=== PATIENT | female | born 1940 | race Caucasian/White ===

== ENCOUNTER 2019-10-16 09:05 | Day surgery (SDC) | payer OTHER ==
--- NOTE | 2019-10-16 09:08 | EKG ---
Test Date: 2019-10-16 Test Time: 08:33:17 Anesthesia Tech: LONG MEASUREMENT RESULTS: Intervals: Rate: 68 [place]: 178 QRSD: 90 QT: 404 QTc: 429 [place]: P: 59 [place]: 178 QRS: -21 T: 17 INTERPRETIVE STATEMENTS: Sinus rhythm with premature atrial complexes Otherwise normal ECG Compared to ECG 03/12/2015 16:00:51 Atrial premature complex(es) now present Sinus arrhythmia no longer present First degree AV block no longer present Electronically Signed On 10-16-19 09:07:53 ELECTRONIC NEWS GATHERING EDITOR by Isauro Al
[2019-10-16 09:26] LABS: Absolute Lymphocytes (CBC) 1.8 K/uL (0.7-4.9); Basophils % 0.9 % (0-1.3); Hematocrit 30.4 % (36.0-45.0); Lymphocytes % 19.7 % (15.3-44.8); MPV 7.1 fL (7.6-11.3); RBC Red Blood Cell Count 3.32 M/uL (3.86-4.86)
[2019-10-16 09:36] LABS: Potassium 3.7 mmol/L (3.5-5.1)
--- NOTE | 2019-10-16 09:38 | RAD REPORT ---
EXAM DESCRIPTION: Magdalena Jimenez And Laurie (2 Views)10/16/2019 9:03 am CLINICAL HISTORY: Preop for removal of lesion from arm COMPARISON: 2014 FINDINGS: Old right rib fractures with chronic elevation of the right hemidiaphragm The lungs appear clear of acute infiltrate. The heart is borderline enlarged IMPRESSION: No acute abnormalities displayed
[2019-10-16] MEDS ORDERED: Ringers Lactate 1,000 ML IV ONE (09:48)
[2019-10-16] MEDS ORDERED: CEFAZOLIN/SWI 1gm 1 GM/10 ML SYR ONE (09:50)
[2019-10-16] MEDS ORDERED: FENTANYL CITR 100 MCG/2 ML ONE (10:16)
[2019-10-16] MEDS ORDERED: LIDOCAINE 2% MPF 5 ML VIAL ONE (10:16)
[2019-10-16] MEDS ORDERED: propofoL 200 MG/20 ML VIAL IV ONE (10:16)
[2019-10-16] MEDS ORDERED: ONDANSETRON 4 MG/2 ML VIAL ONE (10:31)
[2019-10-16] MEDS ORDERED: CODEINE 30MG/APAP 300MG TAB ONE (13:06)
[2019-10-16 14:24] VITALS: TEMP 97.6; O2SAT 95
[2019-10-16 14:37] VITALS: BP 106/55
--- NOTE | 2019-10-16 23:45 | DS ---
Date of Discharge: 10/16/2019 Patient will go to day surgery and home when home when stable. Disposition: Home. Condition: Stable. Discharge Instructions: Resume home medications and diet. Activity as tolerated. No heavy lifting. Remove outer dressing in 2 days. Shower. Keep dressing clean and dry, do not change dressing. Tyl enol No. 3 one tablet p.o. q.4 p.r.n. pain, Keflex 500 mg p.o. daily. I will follow the patient in [facility] halfway next week. /MODL Voice ID: [id number] Report ID: [id number]
--- NOTE | 2019-10-16 23:45 | OP ---
Date of Procedure: 10/16/2019 Surgeon: Reji Reed MD Metal Patternmaker Apprentice: ELIZABETH Mendosa. Preoperative Diagnosis: Left arm ulcerated mass. Postoperative Diagnosis: Left arm ulcerated mass, squamous cell carcinoma. Procedure: Wide excision of left arm 10 x 4 cm with layered closure. Length of closure 10 cm. Estimated Blood Loss: Minimal. Specimen: Left forearm mass. Findings: Squamous cell carcinoma. Margins free. Anesthesia: General. Complications: None. Patient tolerated the procedure in stable condition, taken to Recovery in good general condition. Description Of Procedure: Patient was brought to the OR and placed in supine position. General anes thesia was begun. Patient was prepped and draped in the usual sterile fashion. Marcaine 0.5% was in filtrated locally. 15-blade was used to make a 10 x 4 cm incision to excise this approximately 2.5 c m ulcerated mass with normal skin borders visibly that I could see. Subcutaneous tissue divided, ent robby mass excised, sent to Pathology. Frozen revealed squamous cell carcinoma, margins free. Wound i rrigated. Bleeding controlled with cautery. Flaps created. 3-0 chromic used to approximate subcuta neous tissue and 5-0 nylon interrupted used to close the skin. Sterile dressing was applied. Patient was awakened and taken to Recovery in good general condition. /MODL Voice ID: [id number] Report ID: [id number]
== END 2019-10-16 14:15 | disposition home or self-care (01) ==
LOC: OR 09:05
PROVIDERS: ATTEND Surgery
PROC: 0HBEXZZ Excision of Left Lower Arm Skin, External Approach (ICD-10-PCS; principal; 2019-10-16 10:15)
DX: C44.629 Squamous cell carcinoma of skin of left upper limb, including shoulder (principal); I10 Essential (primary) hypertension; G30.9 Alzheimer's disease, unspecified; F02.80 Dementia in other diseases classified elsewhere, unspecified severity, without behavioral disturbance, psychotic disturbance, mood disturbance, and anxiety; F32.9 Major depressive disorder, single episode, unspecified; R53.81 Other malaise; Z91.040 Latex allergy status
CPT/HCPCS: 93005; 85025; 80048; 36415; 88331; 88332; 88305; 71046; 11606; J2704; J3010; J0690; J7120; J2405

== ENCOUNTER 2020-02-13 10:28 | Emergency (ER) | payer OTHER ==
--- OUTSIDE RECORDS SUMMARY | 2020-02-13 11:37 | XMS REPORT | Continuity of Care Document ---
:1940 Author Organization [facility] t Address [address] [place] [place] [address] Care Team Providers Name Role Phone Ezekiel Arana MD Attending Clinician Problems This patient has no known problems. Allergies, Adverse Reactions, Alerts This patient has no known allergies or adverse reactions. Medications This patient has no known medications. Procedures This patient has no known procedures. Encounters Start End Encounter Admission Attending Care Care Encounter Source Date/Time Date/Time Type Type Clinicians Facility Department ID 2020-02-11 2020-02-12 Office SIN Arana [id number] 14:02:23 11:51:29 Visit Burt Falcon [facility] [id number] [facility] [id number] [facility] [id number] [facility] Results This patient has no known results.
[2020-02-13 11:58] LABS: Absolute Lymphocytes (CBC) 1.8 K/uL (0.7-4.9); Basophils % 0.2 % (0-1.3); Hematocrit 33.4 % (36.0-45.0); Lymphocytes % 18.4 % (15.3-44.8); MPV 7.2 fL (7.6-11.3); RBC Red Blood Cell Count 3.61 M/uL (3.86-4.86)
--- NOTE | 2020-02-13 12:05 | RAD REPORT ---
EXAM DESCRIPTION: Magdalena Single View02/13/2020 11:28 am CLINICAL HISTORY: Abdominal pain/renal failure COMPARISON: October 2019 FINDINGS: Air is present along the lateral aspect of the upper abdomen. That this may indicate pneum operitoneum or air within bowel. If clinically indicated further evaluation with CT could be obtained Chronic elevation right hemidiaphragm Lungs appear clear of acute infiltrate. Heart is normal size Examination was discussed with Dr. Nails in the Emergency Room at 11:59 a.m. on February 13, 2020
[2020-02-13 12:10] LABS: Albumin 3.7 g/dL (3.4-5.0); Bilirubin Direct 0.1 mg/dL (0-0.2); Bilirubin Total 0.5 mg/dL (0.2-1.0); Magnesium 3.1 mg/dL (1.8-2.4); Potassium 3.6 mmol/L (3.5-5.1); Protein, Total 8.2 g/dL (6.4-8.2); Troponin (Emerg Dept Use Only) 0.36 ng/mL (0.0-0.045)
--- NOTE | 2020-02-13 12:53 | RAD REPORT ---
EXAM DESCRIPTION: CT - Chest Abd Pelvis Wo Con - 02/13/2020 12:26 pm CLINICAL HISTORY: Abdominal pain;Chest pain COMPARISON: CTANGIO CHEST dated 08/19/2011; Chest Single View dated 02/13/2020; MRI SACRUM W O CONTRAST dated 11/25/2011; CT ABD PELVIS W CONTRAST dated 08/21/2011 TECHNIQUE: During dynamic enhancement using 100 milliliters nonionic IV contrast, axial 5 millimeter thick images of the chest, abdomen and pelvis were obtained. Biphasic technique was utilized through the abdomen. Oral contrast was administered. All CT scans are performed using dose optimization technique as appropriate and may include automated exposure control or mA/KV adjustment according to patient size. FINDINGS: Left lung field is clear. There is significant right hemidiaphragm elevation. No subpulmon ic abscess or abnormal fluid collection. Patchy posterior right gutter opacification is probably city carrier mati atelectasis rather than pneumonia. No pneumothorax or pleural effusion. No chest wall mass or ab normal axillary lymphadenopathy seen. Mediastinal and hilar regions show no mass or lymphadenopathy. No significant cardiac finding. Dense coronary artery calcifications are present. Bony degenerative changes are present. Multiple old right-sided rib fractures are present. No acute thoracic vertebral body finding. The liver, spleen and pancreas show no significant findings. Gallbladder and biliary tree are normal . Prominent extrarenal pelvis noted on the left. No left-sided obstructing calculus. Severe hydronephro sis of the right pelvis and calices noted. There is moderately severe dilatation of the right ureter down to the pelvic inlet. An obstructing calculus is not seen. Patient has numerous phleboliths. Ther e are numerous calcifications adjacent to the UPJ that are believed to be outside of the system. N o adrenal abnormalities. Urinary bladder is fully contracted by Moore catheter. Urinary bladder is d eviated to the anterior right pelvic floor. No gastric dilatation. No acute gastric finding. No dilated small bowel loops. Patient has very severe rectal dilation. There is a 14 cm AP x 10 cm TR dilated stool pack rectum. A very tortuous and redundant stool packed sigmoid colon is present dilated up to 7-8 cm. Right-side co ann shows only moderate degrees of retained stool volume. Acute appendicitis is not identifiable. No free air, free fluid or inflammatory stranding. No hernia, mass or bulky lymphadenopathy. Abdominal and pelvic bony degenerative changes are present. No pathologic process identifiable. IMPRESSION: Profound dilation of the stool pack rectum measuring 14 cm AP x 10 cm TR. A very tortuou s and redundant sigmoid colon is dilated up to 8 cm and filled with stool. No abscess, free air or other surgically emergent finding. Severe right-sided hydronephrosis of the pelvis and calices with moderately severe hydroureter down t o the pelvic inlet. No obstructing calculus is seen. The hydronephrosis may be secondary to extrinsic compression by the impacted and dilated rectum. Significant right hemidiaphragm elevation with patchy posterior gutter opacification that is probably chronic atelectasis rather than pneumonia. Pyelonephritis and other abdominal and pelvic process ease cannot be fully excluded in the absence of contrast. Nonacute findings are detailed in the body of the report. CT abdomen and pelvis imaging shows no significant or suspicious finding.
[2020-02-13] MEDS ORDERED: PIPER/TAZO/NS 3.375gm 3.375 GM/100 ML BAG ONE (13:14)
--- NOTE | 2020-02-13 14:23 | EDPHYS ---
Physician Documentation [facility] Name: Haylee Kumar Age: 79 yrs Sex: Female : 1940 Arrival Date: 02/13/2020 Time: 10:35 Bed 20 Private MD: ED Physician Prashanth Mtz HPI: 02/12 12:14 This 79 yrs old Female presents to ER via EMS with complaints of Abnormal Lab kdr Results. 12:14 The patient was sent from [place] for elevated Cr. It is unknown when this may have kdr occurred, From attached paper work that accompanied her, it appears that her Last Cr was on 10/16/19 and was 0.79 at that time. She has no focal c/o at this time. She is responsive to questions and follows commands. Her only c/o is generalized weakness. Onset: The symptoms/episode began/occurred at an unknown time. Severity of symptoms: At their worst the symptoms were very mild in the emergency department the symptoms are unchanged. It is unknown whether or not the patient has had similar symptoms in the past. It is unknown whether or not the patient has recently seen a physician. Historical: - Allergies: 10:39 No Known Allergies; ca1 - PMHx: 10:39 Hypertension; Depression; Anxiety; Arthritis; Alzheimers; Dementia; ca1 - PSHx: 10:39 Appendectomy; Hysterectomy; Tonsillectomy; ca1 - Immunization history:: Adult Immunizations up to date. - Social history:: Smoking status: Patient denies any tobacco usage or history of. ROS: 12:14 Constitutional: Negative for fever, chills, and weight loss, the patient is a poor kdr historian Eyes: Negative for injury, pain, redness, and discharge, Neck: Negative for injury, pain, and swelling, Cardiovascular: Negative for chest pain, palpitations, and edema, Respiratory: Negative for shortness of breath, cough, wheezing, and pleuritic chest pain. Exam: 11:57 ECG was reviewed by the Attending Physician. kdr 12:14 Constitutional: This is a well developed, well nourished patient who is awake, alert, kdr and in no acute distress. Head/Face: Normocephalic, atraumatic. Eyes: Pupils equal round and reactive to light, extra-ocular motions intact. Lids and lashes normal. Conjunctiva and sclera are non-icteric and not injected. Cornea within normal limits. Periorbital areas with no swelling, redness, or edema. Neck: Trachea midline, no thyromegaly or masses palpated, and no cervical lymphadenopathy. Supple, full range of motion without nuchal rigidity, or vertebral point tenderness. No Meningismus. Chest/axilla: Normal chest wall appearance and motion. Nontender with no deformity. No lesions are appreciated. Cardiovascular: Regular rate and rhythm with a normal S1 and S2. No gallops, murmurs, or rubs. Normal PMI, no JVD. No pulse deficits. Respiratory: Lungs have equal breath sounds bilaterally, clear to auscultation and percussion. No rales, rhonchi or wheezes noted. No increased work of breathing, no retractions or nasal flaring. Abdomen/GI: Soft, non-tender, with normal bowel sounds. No distension or tympany. No guarding or rebound. No evidence of tenderness throughout. Back: No spinal tenderness. No costovertebral tenderness. Full range of motion. Skin: Warm, dry with normal turgor. Normal color with no rashes, no lesions, and no evidence of cellulitis. MS/ Extremity: Pulses equal, no cyanosis. Neurovascular intact. Full, normal range of motion. Neuro: Awake and alert, GCS 15, oriented to person, place, time, and situation. Cranial nerves II-XII grossly intact. Motor strength 5/5 in all extremities. Sensory grossly intact. Cerebellar exam normal. Normal gait. Psych: Awake, alert, with orientation to person, place and time. Behavior, mood, and affect are within normal limits. Vital Signs: 10:35 BP 124 / 80; Pulse 68; Resp 18 S; Temp 97.1(TE); Pulse Ox 96% on R/A; Weight 54.43 kg ca1 (R); Height 5 ft. 0 in. (152.40 cm) (R); Pain 0/10; 12:00 BP 103 / 66; Pulse 66; Resp 14 S; Pulse Ox 96% on R/A; ca1 12:55 BP 103 / 66; Pulse 70; Resp 15 S; Pulse Ox 97% on R/A; ca1 13:54 BP 106 / 74; Pulse 76; Resp 15 S; Pulse Ox 96% on R/A; ca1 14:45 BP 102 / 70; Pulse 87; Resp 14 S; Pulse Ox 95% on R/A; ca1 15:48 BP 104 / 66; Pulse 91; Resp 14 S; Pulse Ox 96% on R/A; ca1 16:55 BP 109 / 76; Pulse 77; Resp 14 S; Pulse Ox 96% on R/A; ca1 10:35 Body Mass Index 23.44 (54.43 kg, 152.40 cm) ca1 MDM: 12:14 Data reviewed: vital signs, nurses notes, lab test result(s), radiologic studies. kdr Counseling: I had a detailed discussion with the patient and/or guardian regarding: the historical points, exam findings, and any diagnostic results supporting the discharge/admit diagnosis, lab results, radiology results. 14:22 Patient medically screened. kdr 02/12 11:10 Order name: Basic Metabolic Panel; Complete Time: 12:14 kdr 02/12 11:10 Order name: CBC with Diff; Complete Time: 12:01 kdr 02/12 11:10 Order name: LFT's; Complete Time: 12:14 kdr 02/12 11:10 Order name: Magnesium; Complete Time: 12:14 kdr 02/12 11:10 Order name: Troponin (emerg Dept Use Only); Complete Time: 12:14 kdr 02/12 13:00 Order name: Lactate; Complete Time: 13:53 kdr 02/12 11:10 Order name: XRAY Chest (1 view); Complete Time: 12:14 kdr 02/12 11:10 Order name: EKG; Complete Time: 11:11 kdr 02/12 11:10 Order name: Cardiac monitoring; Complete Time: 11:25 kdr 02/12 11:10 Order name: EKG - Nurse/Tech; Complete Time: 11:25 kdr 02/12 12:03 Order name: CT Chest Abdomen Pelvis W/O Contrast; Complete Time: 13:42 kdr 02/12 13:00 Order name: Procalcitonin; Complete Time: 14:02 kdr 02/12 11:10 Order name: IV Saline Lock; Complete Time: 11:32 kdr 02/12 11:10 Order name: Labs collected and sent; Complete Time: 11:32 kdr 02/12 11:10 Order name: O2 Per Protocol; Complete Time: 11:25 kdr 02/12 11:10 Order name: O2 Sat Monitoring; Complete Time: 11:25 kdr EC:57 Rate is 68 beats/min. Rhythm is regular, Normal Sinus Rhythm with No ectopy. Left axis kdr deviation noted. NC interval is normal. QRS interval is normal. QT interval is normal. No Q waves. Clinical impression: NSR w/ Non-specific ST/T Changes. Administered Medications: 13:18 Drug: Zosyn 3.375 grams Route: IVPB; Infused Over: 60 mins; Site: right antecubital; ca1 14:46 Follow up: Response: No adverse reaction; IV Status: Completed infusion ca1 14:46 Drug: Fleet Enema 133 ml Route: NC; ca1 15:15 Follow up: Response: No adverse reaction ca1 Disposition: 02/13/20 14:22 Transfer ordered to [facility]. Diagnosis is Bowel obstruction, hydronephrosis and hydro ureter. - Reason for transfer: Higher level of care. - Accepting physician is [facility]. - Condition is Fair. - Problem is new. - Symptoms are unchanged. Signatures: Dispatcher [employer] EDCO Prashanth Mtz MD MD kdr Abel Melendez, EDITING COMPUTER PUBLISHER-C EDITING COMPUTER PUBLISHER-Cla1 Jocelin Cooper RN RN ca1 Corrections: (The following items were deleted from the chart) 17:15 14:22 02/13/2020 14:22 Transfer ordered to [facility]. ca1 Diagnosis is Bowel obstruction, hydronephrosis and hydro ureter. Reason for transfer: Higher level of care. Accepting physician is [facility]. Condition is Fair. Problem is new. Symptoms are unchanged. kdr
--- NOTE | 2020-02-13 14:23 | ER ---
Nurse's Notes [facility] Name: Haylee Kumar Age: 79 yrs Sex: Female : 1940 Arrival Date: 02/13/2020 Time: 10:35 Bed 20 Private MD: Diagnosis: Bowel obstruction, hydronephrosis and hydro ureter Presentation: 02/12 10:35 Chief complaint: EMS states: Abnormal labs. Elevated creatinine compared to Oct 2019. ca1 [facility] reports pt is more lethargic than usual. No complaints at this time. PT is with [facility]. Coronavirus screen: Proceed with normal triage. Patient denies a cough. Patient denies shortness of breath or difficulty breathing. Patient denies measured and/or subjective temperature greater than 100.4F prior to today's visit. Patient denies travel on a cruise ship or to a country the [facility] currently lists as an affected area. Patient denies contact with known and/or suspected case of COVID-19. Ebola Screen: Patient negative for fever greater than or equal to 101.5 degrees Fahrenheit, and additional compatible Ebola Virus Disease symptoms Patient denies exposure to infectious person. Patient denies travel to an Ebola-affected area in the 21 days before illness onset. No symptoms or risks identified at this time. Initial Sepsis Screen: Does the patient meet any 2 criteria? No. Patient's initial sepsis screen is negative. Does the patient have a suspected source of infection? No. Patient's initial sepsis screen is negative. Risk Assessment: Do you want to hurt yourself or someone else? Patient reports no desire to harm self or others. Onset of symptoms was February 13, 2020. Care prior to arrival: None. Transition of care: patient was received from another setting of care (long-term care facility), Located Within [facility]. 10:35 Method Of Arrival: EMS: [facility] ca1 10:35 Acuity: ANETA 3 ca1 Historical: - Allergies: 10:39 No Known Allergies; ca1 - PMHx: 10:39 Hypertension; Depression; Anxiety; Arthritis; Alzheimers; Dementia; ca1 - PSHx: 10:39 Appendectomy; Hysterectomy; Tonsillectomy; ca1 - Immunization history:: Adult Immunizations up to date. - Social history:: Smoking status: Patient denies any tobacco usage or history of. Screenin:39 Abuse screen: Denies threats or abuse. Denies injuries from another. Nutritional ca1 screening: No deficits noted. Tuberculosis screening: No symptoms or risk factors identified. Fall Risk Secondary diagnosis (15 points) Alzheimer's, dementia, IV access (20 points). Ambulatory Aid- None/Bed Rest/Nurse Assist (0 pts). Gait- Normal/Bed Rest/Wheelchair (0 pts) Total Hou Fall Scale indicates High Risk Score (45 or more points). Fall prevention measures have been instituted. Side Rails Up X 2 Frequent Obs/Assessments Occuring As available patient and family educated on Fall Prevention Program and Strategies. Assessment: 10:40 General: Appears in no apparent distress. comfortable, Behavior is calm, cooperative, ca1 appropriate for age. Pain: Denies pain. Neuro: Level of Consciousness is obeys commands, lethargic, Oriented to person, place, situation. Cardiovascular: Heart tones S1 S2 present Capillary refill < 3 seconds Patient's skin is warm and dry. Rhythm is sinus rhythm. Respiratory: Airway is patent Respiratory effort is even, unlabored, Respiratory pattern is regular, symmetrical, Breath sounds are clear bilaterally. GI: Abdomen is flat, non-distended, Bowel sounds present X 4 quads. Abd is soft and non tender X 4 quads. : Moore in place. EENT: No signs and/or symptoms were reported regarding the EENT system. Derm: Skin is healthy with good turgor, Skin is pink, warm \T\ dry. Decubitus located on sacrum approximately 1.5 cm to 2.5 cm is stage II packing noted , dressing clean, dry and intact. Musculoskeletal: Circulation, motion, and sensation intact. Capillary refill < 3 seconds. 11:50 Reassessment: Patient appears in no apparent distress at this time. No changes from ca1 previously documented assessment. Patient is alert, oriented x 3, equal unlabored respirations, skin warm/dry/pink. 12:55 Reassessment: Patient appears in no apparent distress at this time. No changes from ca1 previously documented assessment. Patient is alert, oriented x 3, equal unlabored respirations, skin warm/dry/pink. 13:54 Reassessment: Patient appears in no apparent distress at this time. No changes from ca1 previously documented assessment. Patient and/or family updated on plan of care and expected duration. Pain level reassessed. 14:30 Reassessment: Attempted digital disimpaction done to evacuate feces. Evacuated some but ca1 unable to stimulate voluntary evacuation. Notified provider. VO fleet enema once. 14:48 Reassessment: Patient appears in no apparent distress at this time. No changes from ca1 previously documented assessment. Patient is alert, oriented x 3, equal unlabored respirations, skin warm/dry/pink. 15:48 Reassessment: Patient appears in no apparent distress at this time. Patient is alert, ca1 oriented x 3, equal unlabored respirations, skin warm/dry/pink. Called for report. Instructed to call back in 15 minutes. 16:22 Reassessment: Called Report TO LINDA Shelby at [facility]. ca1 16:37 Reassessment: Inés Rodriguez [phone]. Daughter. ca1 16:37 Reassessment: Patient appears in no apparent distress at this time. Patient and/or ca1 family updated on plan of care and expected duration. Pain level reassessed. Patient is alert, oriented x 3, equal unlabored respirations, skin warm/dry/pink. Vital Signs: 10:35 BP 124 / 80; Pulse 68; Resp 18 S; Temp 97.1(TE); Pulse Ox 96% on R/A; Weight 54.43 kg ca1 (R); Height 5 ft. 0 in. (152.40 cm) (R); Pain 0/10; 12:00 BP 103 / 66; Pulse 66; Resp 14 S; Pulse Ox 96% on R/A; ca1 12:55 BP 103 / 66; Pulse 70; Resp 15 S; Pulse Ox 97% on R/A; ca1 13:54 BP 106 / 74; Pulse 76; Resp 15 S; Pulse Ox 96% on R/A; ca1 14:45 BP 102 / 70; Pulse 87; Resp 14 S; Pulse Ox 95% on R/A; ca1 15:48 BP 104 / 66; Pulse 91; Resp 14 S; Pulse Ox 96% on R/A; ca1 16:55 BP 109 / 76; Pulse 77; Resp 14 S; Pulse Ox 96% on R/A; ca1 10:35 Body Mass Index 23.44 (54.43 kg, 152.40 cm) ca1 ED Course: 10:35 Patient arrived in ED. ca1 10:37 Triage completed. ca1 10:39 Jocelin Cooper RN is Primary Nurse. ca1 10:39 Arm band placed on right wrist. ca1 10:39 Patient has correct armband on for positive identification. Placed in gown. Bed in low ca1 position. Call light in reach. Side rails up X2. monitoring coordinator on. Pulse ox on. NIBP on. Warm blanket given. 10:42 Prashanth Mtz MD is Attending Physician. kdr 11:29 XRAY Chest (1 view) In Process Unspecified. EDMS 11:32 No provider procedures requiring assistance completed. Initial lab(s) drawn, by me, ca1 sent to lab. Inserted saline lock: 22 gauge in right antecubital area, using aseptic technique. Blood collected. 12:27 CT Chest Abdomen Pelvis W/O Contrast In Process Unspecified. EDMS 13:14 Lactate Sent. ca1 13:14 Procalcitonin Sent. ca1 14:22 Transfer initiated with Ale Tyler RN [facility] Transfer center. em1 15:17 Dr. Camila Mac speaks with Dr. Mtz and gives acceptance. em1 15:26 Ale Tyler RN gives administrative approval. Pt going to [facility] room em1 [id number]. 17:11 Patient transferred, IV remains in place. ca1 Administered Medications: 13:18 Drug: Zosyn 3.375 grams Route: IVPB; Infused Over: 60 mins; Site: right antecubital; ca1 14:46 Follow up: Response: No adverse reaction; IV Status: Completed infusion ca1 14:46 Drug: Fleet Enema 133 ml Route: NC; ca1 15:15 Follow up: Response: No adverse reaction ca1 Output: 17:05 Urine: 600ml (Moore); Total: 600ml. ca1 Outcome: 14:22 ER care complete, transfer ordered by . kdr 17:11 Transferred by ground EMS Transfer form completed. X-rays sent w/ patient. ca1 17:11 Condition: stable 17:11 Instructed on the need for transfer. 17:15 Patient left the ED. ca1 Signatures: Dispatcher [employer] EDMS Prashanth Mtz MD MD kdr Martinez, Eric em1 Jocelin Cooper, RN RN ca1 Corrections: (The following items were deleted from the chart) 15:09 14:30 Reassessment: Digital extraction done to evacuate feces. Evacuated some but ca1 unable to stimulate voluntary evacuation. Notified provider. VO fleet enema once. ca1 16:23 10:40 Derm: Skin is healthy with good turgor, Skin is pink, warm \T\ dry. ca1 ca1 16:39 16:37 Reassessment: Inés Rodriguez [phone] ca1 ca1 18:48 17:11 Instructed on the need for admit, ca1 ca1
[2020-02-13] MEDS ORDERED: FLEET ENEMA ADULT PR ONE (14:42)
[2020-02-13 17:25] VITALS: TEMP 97.1
[2020-02-13 17:31] VITALS: O2SAT 96
[2020-02-13 17:33] VITALS: BP 109/76
== END 2020-02-13 17:15 | disposition short-term general hospital (02) ==
LOC: ER 10:28
DX: K56.609 Unspecified intestinal obstruction, unspecified as to partial versus complete obstruction (principal); N13.30 Unspecified hydronephrosis; N13.4 Hydroureter; I10 Essential (primary) hypertension; G30.9 Alzheimer's disease, unspecified; F02.80 Dementia in other diseases classified elsewhere, unspecified severity, without behavioral disturbance, psychotic disturbance, mood disturbance, and anxiety
CPT/HCPCS: 96365; 93005; 85025 ×2; 80048 ×2; 36415 ×2; 83735; 80076; 83605; 84484; 84145; 71250; 74176; 71045; 99285; J2543

== ENCOUNTER 2020-09-09 16:19 | Inpatient (IN) | payer OTHER ==
--- OUTSIDE RECORDS SUMMARY | 2020-09-09 16:22 | XMS REPORT | Clinical Summary ---
:1940 Author Organization [facility] Address [address] [place] [address] Care Team Providers Name Role Phone Unavailable Primary Care Provider Unavailable Allergies No Known Allergies Medications Medication Sig Dispensed Refills Start Date End Date Status ascorbic Acid Take 1 90 capsule 0 02/16/2020 Acti ve (VITAMIN C) 500 mg capsule (500 CpER SR capsule mg total) by mouth 2 (two) times daily. multivitamin Take 1 tablet 360 tablet 0 02/16/2020 02/15/2021 Active (THERAGRAN) tablet by mouth daily. senna-docusate Take 1 tablet 180 tablet 0 02/16/2020 1 Active (SENOKOT S) 8.6-50 by mouth 2 mg per tablet (two) times daily as needed for Constipation. QUEtiapine Take 1 tablet 60 tablet 0 02/16/2020 02/16/2020 Dis continued (SEROQUEL) 25 MG (25 mg total) tablet by mouth 2 (two) times daily for 30 days. polyethylene glycol Take 17 g by 1530 g 0 02/16/20202019 Discontinued (GLYCOLAX) 17 gram mouth daily packet for 90 days. multivitamin Take 1 tablet 360 tablet 0 02/16/2020 02/16/2020 Discontinued (THERAGRAN) tablet by mouth daily. ascorbic Acid Take 1 90 capsule 0 02/16/2020 02/16/2020 Dis continued (VITAMIN C) 500 mg capsule (500 CpER SR capsule mg total) by mouth 2 (two) times daily. senna-docusate Take 1 tablet 180 tablet 0 02/16/2020 0 Discontinued (SENOKOT S) 8.6-50 by mouth 2 mg per tablet (two) times daily as needed for Constipation. polyethylene glycol Take 17 g by 1530 g 0 02/16/20202019 (GLYCOLAX) 17 gram mouth daily packet for 90 days. QUEtiapine Take 1 tablet 60 tablet 0 02/16/2020 03/17/2020 Exp ired (SEROQUEL) 25 MG (25 mg total) tablet by mouth 2 (two) times daily for 30 days. 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 02/14/2020 02/16/2020 disturbance Obstructive uropathy 02/13/2020 02/16/2020 Encounters Date Type Specialty Care Team Description 02/14/2020 Lab Requisition Lab Rachele Saucedo MD 02/13/2020 - Hospital Encounter General Internal [facility] Late onset Alzheimer's disease without behavioral disturbance (HCC); 02/16/2020 Medicine MD Sameera Obstipation; Salvador Rivera Obstructive uropathy; MD Conrado NGUYEN (acute kidney injury) (HCC); Rachele Saucedo Hydronephro sis of right kidney; MD Yaquelin Mixed stress an d urge urinary incontinence after 09/09/2019 Social History Tobacco Use Types Packs/Day Years Used Date Never Assessed Sex Assigned at Date Recorded Not on file Last Filed Vital Signs Vital Sign Reading Time Taken Comments Blood Pressure 109/58 02/16/2020 2:02 PM CDT Pulse 92 02/16/2020 2:02 PM CDT Temperature 36.1 C (96.9 F) 02/16/2020 2:02 PM CDT Respiratory Rate 18 02/16/2020 2:02 PM CDT Oxygen Saturation 98% 02/16/2020 2:02 PM CDT Inhaled Oxygen - - Concentration Weight 54.4 kg (119 lb 15.9 02/14/2020 7:29 from medic al records oz) PM CDT Height - - Body Mass Index - - Plan of Treatment Health Maintenance Due Date Last Done Comments PNEUMOCOCCAL 65+ YRS (1 of 1 - [id number]) 2003 MEDICARE ANNUAL WELLNESS (YEAR 2 or FIRST YEAR if no 06/12/2004 IPPE) INFLUENZA VACCINE (#1) 2020 Procedures Procedure Name Priority Date/Time Associated Comments Diagnosis RHYTHM STRIP - SCAN 02/18/2020 10:12 AM CDT XR ABDOMEN / KUB 1 Routine 02/16/2020 11:15 Resul ts for this VIEW AM CDT procedure are i n the results section. US RENAL COMPLETE Routine 02/16/2020 7:58 Result s for this AM CDT procedure are i n the results section. CBC W/PLT COUNT & Routine 02/16/2020 5:02 Result s for this AUTO DIFFERENTIAL AM CDT procedure are in the results section. MAGNESIUM Routine 02/16/2020 5:02 Results for this AM CDT procedure are i n the results section. CBC W/PLT COUNT & Routine 02/16/2020 5:02 Result s for this AUTO DIFFERENTIAL AM CDT procedure are in the results section. BASIC METABOLIC PANEL Routine 02/16/2020 5:02 Re sults for this (7) AM CDT procedure are i n the results section. POCT-GLUCOSE METER Routine 02/15/2020 11:14 Resul ts for this PM CDT procedure are i n the results section. TRANSFUSION SERVICE 02/15/2020 5:51 REPORT - SCAN PM CDT UREA NITROGEN, RANDOM Routine 02/15/2020 4:35 Re sults for this URINE AM CDT procedure are i n the results section. CREATININE, RANDOM Routine 02/15/2020 4:35 Resul ts for this URINE AM CDT procedure are i n the results section. SODIUM, RANDOM URINE Routine 02/15/2020 4:35 Res ults for this AM CDT procedure are i n the results section. CBC W/PLT COUNT & Routine 02/15/2020 4:18 Result s for this AUTO DIFFERENTIAL AM CDT procedure are in the results section. CBC W/PLT COUNT & Routine 02/15/2020 4:18 Result s for this AUTO DIFFERENTIAL AM CDT procedure are in the results section. BASIC METABOLIC PANEL Routine 02/15/2020 4:18 Re sults for this (7) AM CDT procedure are i n the results section. FL COLON STAT 02/14/2020 4:00 Results for this PM CDT procedure are i n the results section. XR ABDOMEN / KUB 1 Routine 02/14/2020 2:33 Resul ts for this VIEW PM CDT procedure are i n the results section. US RENAL COMPLETE STAT 02/14/2020 12:45 Result s for this PM CDT procedure are i n the results section. BASIC METABOLIC PANEL Routine 02/14/2020 11:27 Re sults for this (7) AM CDT procedure are i n the results section. BASIC METABOLIC PANEL Routine 02/14/2020 5:28 Re sults for this (7) AM CDT procedure are i n the results section. CBC W/PLT COUNT & Routine 02/14/2020 1:32 Result s for this AUTO DIFFERENTIAL AM CDT procedure are in the results section. ABORH, MANUAL STAT 02/14/2020 1:32 Results fo r this AM CDT procedure are i n the results section. CBC W/PLT COUNT & Routine 02/14/2020 1:32 Result s for this AUTO DIFFERENTIAL AM CDT procedure are in the results section. TYPE AND SCREEN, Routine 02/14/2020 12:32 Results for this AUTOMATED AM CDT procedure are i n the results section. SARS-COV2/RT-PCR Routine 02/13/2020 11:50 Results for this ([facility] & REF LABS) PM CDT procedure are in the results section. URINALYSIS Routine 02/13/2020 11:16 Results for this MICROSCOPIC PM CDT procedure are i n the results section. URINALYSIS WITH Routine 02/13/2020 11:16 Results for this MICROSCOPIC IF PM CDT procedure are in INDICATED the results section. CBC W/PLT COUNT & Routine 02/13/2020 10:28 Result s for this AUTO DIFFERENTIAL PM CDT procedure are in the results section. HEPATIC FUNCTION Routine 02/13/2020 10:28 Results for this PANEL PM CDT procedure are i n the results section. PROTHROMBIN TIME/INR Routine 02/13/2020 10:28 Res ults for this PM CDT procedure are i n the results section. CBC W/PLT COUNT & Routine 02/13/2020 10:28 Result s for this AUTO DIFFERENTIAL PM CDT procedure are in the results section. BASIC METABOLIC PANEL Routine 02/13/2020 10:28 Re sults for this (7) PM CDT procedure are i n the results section. after 09/09/2019 Results RHYTHM STRIP - SCAN (02/18/2020 10:12 AM CDT) Narrative Performed At This result has an attachment that is no t available. XR abdomen / KUB 1 view (02/16/2020 11:15 AM CDT)Only the most recent of2 resultswithin the time period is included. Specimen Narrative Performed At FINAL REPORT GE RIS TECHNIQUE: Frontal view of the abdomen. INDICATION: 79-year-old woman with const ipation and distention. COMPARISON: Abdomen radiograph 02/14/2020. IMPRESSION: Decreased but persistent large amount of impacted stool in the rectum. Resolved distention of the remai nder of the colon and small bowel.. Bones and soft tissues are unchanged. Signed: Marilyn Sorensen MD Report Verified Date/Time: 02/16/2020 12:26:54 Reading Location: [facility] B1 C013Y CT Body R eading Room Procedure Note Interface, External Ris In - 02/16/2020 12:29 PM CDT FINAL REPORT TECHNIQUE: Frontal view of the abdomen. INDICATION: 79-year-old woman with const ipation and distention. COMPARISON: Abdomen radiograph 02/14/2020. IMPRESSION: Decreased but persistent large amount of impacted stool in the rectum. Resolved distention of the remai nder of the colon and small bowel.. Bones and soft tissues are unchanged. Signed: Marilyn Sorensen MD Report Verified Date/Time: 02/16/2020 1 2:26:54 Reading Location: [facility] B1 C013Y CT Body R eading Room Performing Organization Address City/State/Zipcode Phone Number [facility] US renal complete (02/16/2020 7:58 AM CDT)Only the most recent of2 results within the time period is included. Specimen Narrative Performed At FINAL REPORT [facility] Renal ultrasound History: Right hydronephrosis Comparison: 02/14/2020 Findings: Interval improvement in previous right h ydronephrosis, with persistent dilation of the right renal p colette. No renal calculus or renal mass is visualized. Right kidney measures 8.9 x 4.7 x 4.2cm. Left kidney measures 10.0 x 5.6 x 3.6cm. The bladder is decompressed by a Moore catheter, and cannot be adequ ately assessed. Impression: Interval improvement in previous right h ydronephrosis. Signed: Aldo Mars MD Report Verified Date/Time: 02/16/2020 08:51:57 Reading Location: [facility] B1 C013X Ortho Con sult [place] Room Procedure Note Interface, External Ris In - 02/16/2020 8:54 AM CDT FINAL REPORT Renal ultrasound History: Right hydronephrosis Comparison: 02/14/2020 Findings: Interval improvement in previous right h ydronephrosis, with persistent dilation of the right renal p colette. No renal calculus or renal mass is visualized. Right kidney measures 8.9 x 4.7 x 4.2cm. Left kidney measures 10.0 x 5.6 x 3.6cm. The bladder is decompressed by a Moore catheter, and cannot be adequ ately assessed. Impression: Interval improvement in previous right h ydronephrosis. Signed: Aldo Mars MD Report Verified Date/Time: 02/16/2020 0 8:51:57 [place] Location: [facility] C013X Ortho Con sult [place] Room Performing Organization Address City/State/Zipcode Phone Number GE RIS CBC with platelet count + automated diff (02/16/2020 5:02 AM CDT)Only the most recent of4 resultswithin the time period is included. Pathologist Sig nature WBC 11.2 (H) 3.5 - 10.5 [facility] K/L [facility] RBC 3.26 (L) 3.93 - 5.22 [facility] M/L [facility] Hemoglobin 9.9 (L) 11.2 - 15.7 [facility] GM/DL [facility] Hematocrit 32.9 (L) 34.1 - 44.9 % [facility] MCV 100.9 (H) 79.4 - 94.8 fL [facility] MCH 30.4 25.6 - 32.2 pg [facility] MCHC 30.1 (L) 32.2 - 35.5 [facility] GM/DL [facility] RDW 16.9 (H) 11.7 - 14.4 % [facility] Platelets 292 150 - 450 K/CU [facility] MPV 8.6 (L) 9.4 - 12.3 fL [facility] nRBC 0 0 - 0 /100 WBC [facility] % Neutros 65 % [facility] % Lymphs 21 % [facility] % Monos 10 % [facility] % Eos 4 % [facility] % Baso 0 % [facility] # Neutros 7.24 (H) 1.56 - 6.13 [facility] # Lymphs 2.35 1.18 - 3.74 [facility] # Monos 1.10 (H) 0.24 - 0.36 [facility] # Eos 0.46 (H) 0.04 - 0.36 [facility] # Baso 0.03 0.01 - 0.08 [facility] Immature 0 0 - 1 % [facility] Granulocytes-Relativ [facility] e CENTER Specimen Blood Performing Organization Address City/[facility]/Zipcode Phone Number [address] [address] CENTER Magnesium (02/16/2020 5:02 AM CDT) Pathologist Sig nature Magnesium 2.5 1.6 - 2.6 mg/dL [facility] Specimen Blood Narrative Performed At Machine Set Up Technician FER Emerson [facility] Performing Organization Address City/[facility]/Zipcode Phone Number [place] [phone] [place] [address] CENTER Basic metabolic panel (02/16/2020 5:02 AM CDT)Only the most recent of5 results within the time period is included. Sodium 145 136 - 145 meq/L [facility] Potassium 3.9 3.5 - 5.1 meq/L [facility] Chloride 111 (H) 98 - 107 meq/L [facility] CO2 24 22 - 29 meq/L [facility] BUN 52 (H) 7 - 21 mg/dL [facility] Creatinine 1.09 0.57 - 1.25 [facility] mg/dL [facility] Glucose 86 70 - 105 mg/dL [facility] Calcium 9.0 8.4 - 10.2 [facility] mg/dL [facility] EGFR 48Comment: ESTIMATED mL/min/1.73 sq [facility] GFR IS NOT m [facility] ACCURATE [place] CREATININE CLEARANCE IN PREDICTING GLOMERULAR FILTRATION RATE. ESTIMATED GFR IS NOT APPLICABLE FOR DIALYSIS PATIENTS. Specimen Blood Narrative Performed At Machine Set Up Technician ID - DAYAN Emerson [facility] Performing Organization Address City/State/Zipcode Phone Number [address] [address] CENTER POC-Glucose meter (02/15/2020 11:14 PM CDT) POC-Glucose Meter 123 (H)Comment: 70 - 110 mg/dL [facility] : TESTED AT [facility] [address] [place] [address], [address]: Machine Set Up Technician/Technic kulwant ID = [id number] for Julieth Leblanc Specimen Blood Performing Organization Address City/[facility]/Zipcode Phone Number [address] [address] [place] TRANSFUSION SERVICE REPORT - SCAN (02/15/2020 5:51 PM CDT) Narrative Performed At This result has an attachment that is no t available. Urea Nitrogen, random urine (02/15/2020 4:35 AM CDT) Pathologist Sig nature Urea Nitrogen, Ur 619 mg/dL [facility] Specimen Urine Narrative Performed At Reference Range: No Normals [facility] Machine Set Up Technician ID - ERASTO W Performing Organization Address [facility] Phone Number [address] [address] [place] Sodium, random urine (02/15/2020 4:35 AM CDT) Pathologist Sig nature Sodium Urine 32 meq/L [facility] [place] Specimen Urine Narrative Performed At Reference Range: No Normals [facility] Machine Set Up Technician ID - ERASTO Sandoval Performing Organization Address [facility] Phone Number [address] [address] [place] Creatinine, random urine (02/15/2020 4:35 AM CDT) Pathologist Sig nature Creatinine, Ur 29.2 mg/dL [facility] [place] Specimen Urine Narrative Performed At Reference Range: No Normals [facility] Machine Set Up Technician ID - ERASTO Sandoval Performing Organization Address [facility] Phone Number [address] [address] [place] FL colon (02/14/2020 4:00 PM CDT) Specimen Narrative Performed At FINAL REPORT GE RIS Gastrografin enema CLINICAL HISTORY: Constipation DISCUSSION: Bench Worker Helper film of the abdomen demonstrates d istended colon with large amount of fecal content. After the rectal tube is advanced into t he rectum and the balloon inflated (performed by the technologist) , Gastrografin is infused into the rectum in a retrograde fashion via gravity, until the transverse colon is opacified. Exam is l imited by extensive leakage of contrast around the rectal tube. There is extensive fecal impaction in th e rectum. Fluoroscopy time: 2.3 minutes Number of images obtained : 6 Signed: Emerson Alonzo MD Report Verified Date/Time: 02/14/2020 16:33:51 [place] Location: [facility] C013X Ortho Con sult [place] Room Procedure Note Interface, External Ris In - 02/14/2020 6:53 PM CDT FINAL REPORT Gastrografin enema CLINICAL HISTORY: Constipation DISCUSSION: Bench Worker Helper film of the abdomen demonstrates d istended colon with large amount of fecal content. After the rectal tube is advanced into t he rectum and the balloon inflated (performed by the technologist) , Gastrografin is infused into the rectum in a retrograde fashion via gravity, until the transverse colon is opacified. Exam is l imited by extensive leakage of contrast around the rectal tube. There is extensive fecal impaction in th e rectum. Fluoroscopy time: 2.3 minutes Number of images obtained : 6 Signed: Emerson Alonzo MD Report Verified Date/Time: 02/14/2020 1 6:33:51 [place] Location: [facility] B1 C013X Ortho Con sult [place] Room Performing Organization Address City/[facility]/Zipcode Phone Number GE RIS ABORH, manual (02/14/2020 1:32 AM CDT) Pathologist Sig nature ABO Grouping O [facility] Rh Factor POS [facility] Specimen Blood Performing Organization Address [facility]/Zipcode Phone Number [address] [address] Type and screen, automated (02/14/2020 12:32 AM CDT) Pathologist Sig nature ABO/RH AUTOMATED O POSITIVE [facility] (BEAKER) [facility] Ab Scrn NEGATIVE [facility] Specimen Blood Performing Organization Address [facility]/Zipcode Phone Number [address] [address] SARS-CoV2/RT-PCR (Asymptomatic ONLY) (02/13/2020 11:50 PM CDT) SARS-COV2/RT-PCR Negative Not Detected, [facility] Negative NON-INTERFACED REFERENCE LABS SARS-COV-2 [facility] PERFORMING LAB NON-INTERFACED REFERENCE LABS Specimen Other - Nasopharyngeal wall structure (b jessica structure) Performing Organization Address City/[facility]/Zipcode Phone Number [facility] NON-INTERFACED REFERENCE LABS Urinalysis Microscopic Only (02/13/2020 11:16 PM CDT) Pathologist Sig nature RBC, UA 3 /HPF [facility] WBC, UA 8 /HPF [facility] Bacteria, UA Occasional [facility] Mucus Rare [facility] Hyaline Casts, UA 8 /LPF [facility] Specimen Urine Narrative Performed At Machine Set Up Technician ID - tech [facility] Performing Organization Address City/[facility]/Zipcode Phone Number [place] [phone] [place] [address] CENTER Urinalysis with Microscopic If Indicated (02/13/2020 11:16 PM CDT) Pathologist Sig nature Color, UA Yellow [facility] Clarity, UA Hazy [facility] Specific [place], 1.014 1.001 - 1.035 [facility] pH, UA 5.0 5.0 - 8.0 [facility] Protein, UA Negative Negative [facility] Glucose, UA Negative Negative [facility] Ketones, UA Trace (A) Negative [facility] Bilirubin, UA Negative Negative [facility] Blood, UA Negative Negative [facility] Nitrite, UA Negative Negative [facility] Leukocytes, UA Large (A) Negative [facility] Urobilinogen, UA 0.2 0.2 - 1.0 mg/dL [facility] Specimen Source [facility] Specimen Urine Narrative Performed At Machine Set Up Technician ID - [auto] [facility] Machine Set Up Technician ID - tech Performing Organization Address [facility]/Zipcode Phone Number [address] [address] [place] Prothrombin time/INR (02/13/2020 10:28 PM CDT) Pathologist Sig nature Protime 15.3 (H) 11.9 - 14.2 seconds [facility] INR 1.2 <=5.9 [facility] Specimen Blood Narrative Performed At Effective 02/06/2019: PT Reference Range [facility] Change New: 11.9-14.2 Previous: 11.7-14.7 RECOMMENDED COUMADIN/WARFARIN INR THERAPY RANGES STANDARD DOSE: 2.0-3.0 Includes: PROPHYLAXIS for venous thrombosis, systemic embolization; TREATMENT for venous thrombosis and/or pulmonary embolus. HIGH RISK: Target INR is 2.5-3.5 for patients wiht mechanical heart valves. Performing Organization Address City/[facility] Phone Number [address] [address] [place] Hepatic function panel (02/13/2020 10:28 PM CDT) Pathologist Sig nature Protein, Total 8.3 6.0 - 8.3 gm/dL [facility] Albumin 4.1 3.5 - 5.0 g/dL [facility] Total Bilirubin 0.6 0.2 - 1.2 mg/dL [facility] Bilirubin, Direct 0.3 0.1 - 0.5 mg/dL [facility] Alkaline Phosphatase 78 40 - 150 U/L [facility] AST 34 5 - 34 U/L [facility] ALT 13 6 - 55 U/L [facility] Specimen Blood Narrative Performed At Machine Set Up Technician ID - PIAYA L [facility] Performing Organization Address City/State/Zipcode Phone Number [facility] [address] [place] [address] CENTER after 09/09/2019 Insurance Payer Benefit Plan / Subscriber ID Effective Phone Address T ype Group Dates MEDICARE MEDICARE A B [id number] 2003-Pres Medicare ent MEDICAID - JANETH COMM [id number] 2020-Prese Me dicaid MEDICAID MGD STAR PLAN nt [facility] CARE Advance Directives For more information, please contact: [phone] Code Status Date Activated Date Inactivated Comments DNAR 02/14/2020 9:45 AM 02/16/2020 6:40 PM This code status was determined by: Patient Has the consent form been signed? Yes Have you Written ACP Note: No Full Code 02/13/2020 8:41 PM 02/14/2020 9:45 AM This code status was determined by: Patient
--- OUTSIDE RECORDS SUMMARY | 2020-09-09 16:24 | XMS REPORT | Continuity of Care Document ---
:1940 Author Organization [facility] t Address [address] [place] [address] Care Team Providers Name Role Phone Sameera Mac MD Attending Clinician Conrado Rivera MD Attending Clinician Niko Saucedo MD Attending Clinician SAMEERA MAC Attending Clinician Unavailable Ezekiel Arana MD Attending Clinician NIKO SAUCEDO Admitting Clinician Unavailable Payers Payer Name Policy Type Policy Effective Date Expiration Date Sour ce Number MEDICAREMEDICARE A [id number] 2003 CARLOS Morin [id number] 2002- 00:00:00 - Medical PresentMedicare Center MEDICAID - MEDICAID [id number] CARLOS [facility] - Med [facility] Center [id number] 2019- PresentMedicaid Contracted Problems Condition Condition Condition Status Onset Resolution Last Treating Co mments Source Name Details Category Date Date Treatment Clinician Date Obstipatio Obstipatio Disease Active C [facility] n 6 [facility] - 00:00: Medical 00 Center History of Past Illness Condition Condition Condition Status Onset Resolution Last Treating Co mments Source Name Details Category Date Date Treatment Clinician Date Hydronephr Hydronephr Disease Resolve 2020-02-16 2020-02-16 [facility] osis, osis, d 02-15 00:00:00 09:28:49 [facility] right right 00:[facility] Medical 00 Center NGUYEN (acute NGUYEN (acute Disease Resolve 2020-02-16 2020-02-16 [facility] kidney kidney d 02-15 00:00:00 09:28:59 [facility] - injury) injury) 00:00: Medical 00 Center Late onset Late onset Disease Resolve 2020-02-16 2020-02-16 [facility] Alzheimer' Alzheimer' d 02-13 00:00:00 09:28:36 [facility] - s disease s disease 00:00: Medi savage without without 00 Center behavioral behavioral disturbanc disturbanc e e Obstructiv Obstructiv Disease Resolve 2020-02-16 2020-02-16 [facility] e uropathy e uropathy d 02-12 00:00:00 09:28:28 [facility] - 00:[facility]: Medical 00 Center Allergies, Adverse Reactions, Alerts This patient has no known allergies or adverse reactions. Social History Social Habit Start Date Stop Date Quantity Comments Source Sex Assigned At [facility] Medications Ordered Filled Start Stop Current Ordering Indication Dosage Frequency Signature Comments Components Source Medication Medication Date Date Medication? Clinician (SIG) Name Name ascorbic Yes 500mg Q.5D Take [address] [facility] [address] Acid - capsule [facility] - (VITAMIN C) 00:00: (500 mg Med ical 500 mg CpER 00 total) by Gabriella ter SR capsule mouth 2 (two) times daily. multivitami 2020- No 1{tbl} QD Take [address] n -03 16- tablet by [facility] - (THERAGRAN) 00:00: 23:59 mouth Medi savage tablet 00 :00 daily. Center senna-docus 2020- No 1{tbl} Take [address] ate 6- 06-07 tablet by [facility] - (SENOKOT S) 00:00: 23:59 mouth 2 Me dical 8.6-50 mg 00 :00 (two) Center per tablet times daily as needed for Constipati on. polyethylen 2020- No 17g QD Take [address] [address] e glycol -03 19-05 by mouth [facility] - (GLYCOLAX) 00:00: 23:59 daily for M edical 17 gram 00 :00 90 days. Center packet QUEtiapine 2019- No 25mg Q.5D Take [address] [facility] (SEROQUEL) 02-15-07 tablet (25 Christina kes - 25 MG 00:00: 23:59 mg total) Medica l tablet 00 :00 by mouth 2 Center (two) times daily for 30 days. QUEtiapine 2019-2019- No 25mg Q.5D Take [address] (SEROQUEL) 02-15-07 tablet (25 Christina kes - 25 MG 00:00: 00:00 mg total) Medica l tablet 00 :00 by mouth 2 Center (two) times daily for 30 days. polyethylen 2019- No 17g QD Take [address] [address] e glycol 02-15- by mouth [facility] - (GLYCOLAX) 00:00: 00:00 daily for M edical 17 gram 00 :00 90 days. Center packet multivitami 2019- No 1{tbl} QD Take [address] n 02-15 tablet by [facility] - (THERAGRAN) 00:00: 00:00 mouth Medi savage tablet 00 :00 daily. Spencer ascorbic 2019- No 500mg Q.5D Take 1 [facility] Acid 02-15 capsule [facility] - (VITAMIN C) 00:00: 00:00 (500 mg Me dical 500 mg CpER 00 :00 total) by Gabriella ter SR capsule mouth 2 (two) times daily. senna-docus 2019- No 1{tbl} Take [address] ate 02-15 tablet by [facility] - (SENOKOT S) 00:00: 00:00 mouth 2 Me dical 8.6-50 mg 00 :00 (two) Center per tablet times daily as needed for Constipati on. Vital Signs Vital Name Observation Time Observation Value Comments Source Systolic blood 2020-02-16 14:02:00 109 mm[Hg] [facility] Diastolic blood 2020-02-16 14:02:00 58 mm[Hg] [facility] Heart rate 2020-02-16 14:02:00 92 /min [facility] Body temperature 2020-02-16 14:02:00 36.06 Brielle [facility] Respiratory rate 2020-02-16 14:02:00 18 /min [facility] Oxygen saturation 2020-02-16 14:02:00 98 /min [facility] Arterial blood Medical Ce nter by Pulse oximetry Body weight 2020-02-14 19:29:00 54.43 kg from medical [facility] Procedures Procedure Date / Time Performed Performing Clinician [facility] e RHYTHM STRIP - SCAN 2020-02-18 10:12:52 Provider, Default [facility] XR ABDOMEN / KUB 1 VIEW 2020-02-16 11:15:00 Marie [facility] US RENAL COMPLETE 2020-02-16 07:58:00 Osvaldo Horta [facility] BASIC METABOLIC PANEL 2020-02-16 05:02:00 Michaela Leos [address] MAGNESIUM 2020-02-16 05:02:00 Nicole [facility] CBC W/PLT COUNT & AUTO 2020-02-16 05:02:00 Michaela Leos [facility] POCT-GLUCOSE METER 2020-02-15 23:14:00 Marie [facility] TRANSFUSION SERVICE 2020-02-15 17:51:03 Provider, Default [facility] REPORT [facility] SODIUM, RANDOM URINE 2020-02-15 04:35:00 Michaela Leos [facility] CREATININE, RANDOM URINE 2020-02-15 04:35:00 Michaela Leos [facility] UREA NITROGEN, RANDOM 2020-02-15 04:35:00 Michaela Leos [facility] BASIC METABOLIC PANEL 2020-02-15 04:18:00 Michaela Leos [address] CBC W/PLT COUNT & AUTO 2020-02-15 04:18:00 Michaela Leos [facility] FL COLON 2020-02-14 16:00:00 Michaela Leos [facility] XR ABDOMEN / KUB 1 VIEW 2020-02-14 14:33:00 Salvador Rivera [facility] US RENAL COMPLETE 2020-02-14 12:45:00 Salvador Rivera [facility] BASIC METABOLIC PANEL 2020-02-14 11:27:00 Alfonzo Oviedo [facility] - (7[facility] MET[facility]OLIC PANEL 2020-02-14 05:28:00 Rachele Saucedo [facility] Jessi Patience - (7) [facility] ABORH, MANUAL 2020-02-14 01:32:00 Micaeal Fernandez [facility] CBC W/PLT COUNT & AUTO 2020-02-14 01:32:00 Rachele Saucedo [facility] - DIFFERENTIAL [facility] TYPE AND SCREEN, 2020-02-14 00:32:00 Rachele Saucedo [facility] - AUTOMATED [facility] SARS-COV2/RT-PCR ([facility] & 2020-02-13 23:50:[address] [facility] - REF LABS) [facility] URINALYSIS WITH 2020-02-13 23:16:00 Rachele Saucedo [facility] s - MICROSCOPIC IF INDICATED [facility] URINALYSIS MICROSCOPIC 2020-02-13 23:16:00 Rachele Saucedo [facility] BASIC METABOLIC PANEL 2020-02-13 22:28:00 Rachele Saucedo [facility] - (7) [facility] PROTHROMBIN TIME/INR 2020-02-13 22:28:00 Rachele Saucedo [facility] HEPATIC FUNCTION PANEL 2020-02-13 22:28:00 Rachele Saucedo [facility] CBC W/PLT COUNT & AUTO 2020-02-13 22:28:00 Rachele Saucedo [facility] - DIFFERENTIAL [facility] Plan of Care Planned Activity Planned Date Details Comments Source Future Scheduled 2020-05-12 INFLUENZA VACCINE (#1) [facility] Test 00:00:00 [code = INFLUENZA Medical Ce nter VACCINE (#1)] Future Scheduled 2004-06-[address] [facility] - Test 00:00:00 WELLNESS (YEAR 2 or Medical Center FIRST YEAR if no IPPE) [code = MEDICARE ANNUAL WELLNESS (YEAR 2 or FIRST YEAR if no IPPE)] Future Scheduled 2003 PNEUMOCOCCAL 65+ YRS [facility] - Test 00:00:00 (1 of 1 - Medical Center [id number] PCV13) [code = PNEUMOCOCCAL 65+ YRS (1 of 1 - [id number] PCV13)] Encounters Start End Encounter Admission Attending Care Care Encounter Source Date/Time Date/Time Type Type Clinicians Facility Department ID 2020-02-11 2020-02-12 Office Yasmeen [facility] [id number] 14:02:23 11:51:29 Visit Burt Saavedra [id number] [facility] [id number] CENTER [id number] [facility] Results Test Description Test Time Test Comments Results Result [facility] e Comments RAD, ABDOMEN/KUB, Reason for FINAL REPORT 1 VIEW AP 7 exam:->constipa PATIENT ID: 12:26:00 tion, [id number] TECHNIQUE: distention Frontal view of the abdomen. INDICATION: 79-year-old woman with constipation and distention. COMPARISON: Abdomen radiograph 02/14/2020. IMPRESSION:Decrease d but persistent large amount of impacted stool in the rectum. Resolved distention of the remainder of the colon and small bowel.. Bones and soft tissues are unchanged. Signed: Marilyn Pitt MDReport Verified Date/Time: 02/16/2020 12:26:54 Reading Location: [facility] B1 C013Y CT Body Reading Room abdomen / KUB Interface, External [facility] 1 view 7 Ris In - 02/16/2020 - Med ical 12:26:00 12:29 PM CDTFINAL Center REPORT TECHNIQUE: Frontal view of the abdomen. INDICATION: 79-year-old woman with constipation and distention. COMPARISON: Abdomen radiograph 02/14/2020. IMPRESSION:Decrease d but persistent large amount of impacted stool in the rectum. Resolved distention of the remainder of the colon and small bowel.. Bones and soft tissues are unchanged. Signed: Marilyn Pitt MDReport Verified Date/Time: 02/16/2020 12:26:54 Reading Location: [facility] C013Y CT Body Reading Room U/S, RENAL, Reason for FINAL REPORT COMPLETE 7 exam:->followup PATIENT ID: 08:51:00 R hydro [id number] Renal ultrasound History: Right hydronephrosis Comparison: 02/14/2020 Findings: Interval improvement in previous right hydronephrosis, with persistent dilation of the right renal pelvis. No renal calculus or renal mass is visualized. Right kidney measures 8.9 x 4.7 x 4.2cm. Left kidney measures 10.0 x 5.6 x 3.6cm. The bladder is decompressed by a Moore catheter, and cannot be adequately assessed. Impression: Interval improvement in previous right hydronephrosis. Signed: Aldo Mars MDReport Verified Date/Time: 02/16/2020 08:51:57 Reading Location: [facility] C013X Ortho Consult Reading Room renal complete Interface, External [facility] 7 Ris In - 02/16/2020 - Med ical 08:51:00 8:54 AM CDTFINAL Center REPORT Renal ultrasound History: Right hydronephrosis Comparison: 02/14/2020 Findings: Interval improvement in previous right hydronephrosis, with persistent dilation of the right renal pelvis. No renal calculus or renal mass is visualized. Right kidney measures 8.9 x 4.7 x 4.2cm. Left kidney measures 10.0 x 5.6 x 3.6cm. The bladder is decompressed by a Moore catheter, and cannot be adequately assessed. Impression: Interval improvement in previous right hydronephrosis. Signed: Aldo Marseport Verified Date/Time: 02/16/2020 08:51:57 Reading Location: [facility] B1 C013X Ortho Consult Reading Room Basic metabolic panel 2020-02-16 05:48:00 Test Item Value Reference Range Interpretation Comme nts Sodium (test code = 145 meq/L 822-904 0191-2) Potassium (test code = 3.9 meq/L 3.5-5.1 2823-3) Chloride (test code = 111 meq/L 98-107 H 2075-0) CO2 (test code = 8-9) 24 meq/L 22-29 BUN (test code = 3094-0) 52 mg/dL 7-21 H Creatinine (test code = 1.09 mg/dL 0.57-1.25 2160-0) Glucose (test code = 86 mg/dL 70-105 2345-7) Calcium (test code = 9.0 mg/dL 8.4-10.2 20280-2) EGFR (test code = 53204-5) 48 mL/min/1.73 sq m ESTIMATED GFR IS NOT ACCURATE CREATININE YENY VANCE IN PREDICTING GLOMERULAR FILT RATION RATE. ESTIMATED GFR IS NOT APPLICAB LE FOR DIALYSIS PATIEN TS. MINERVA (test code = MINERVA) Amusement Equipment Operator ID - DAYAN Emerson Lab Interpretation (test Abnormal code = 85776-9) [facility] 05[facility]00 Test Item Value Reference Range Interpretation Comments Magnesium (test code = 2.5 mg/dL 1.6-2.6 64195-8) MINERVA (test code = MINERVA) Amusement Equipment Operator ID - DAYAN Emerson Lab Interpretation (test Normal code = 28334-3) [facility] 05:48:00 Test Item Value Reference Range Interpretation Comments MAGNESIUM (BEAKER) (test code = 2.5 mg/dL 1.6-2.6 627) Amusement Equipment Operator ID - DAYAN BROOKSASIC METABOLIC [id number] 05:48:00 Test Item Value Reference Range Interpretation Comments SODIUM (BEAKER) 145 meq/L 136-145 (test code = 381) POTASSIUM (BEAKER) 3.9 meq/L 3.5-5.1 (test code = 379) CHLORIDE (BEAKER) 111 meq/L 98-107 H (test code = 382) CO2 (BEAKER) (test 24 meq/L 22-29 code = 355) BLOOD UREA NITROGEN 52 mg/dL 7-21 H (BEAKER) (test code = 354) CREATININE (BEAKER) 1.09 mg/dL 0.57-1.25 (test code = 358) GLUCOSE RANDOM 86 mg/dL 70-105 (BEAKER) (test code = 652) CALCIUM (BEAKER) 9.0 mg/dL 8.4-10.2 (test code = 697) EGFR (BEAKER) (test 48 mL/min/1.73 ESTIMA LUIS GFR IS code = 1092) sq m NOT ACCURATE CREATININE CLEARANCE IN PREDICTING GLOMERULAR FILTRATION RATE . ESTIMATED GFR I S NOT APPLICABLE FOR DIALYSIS PATIEN TS. Amusement Equipment Operator ID - DAYAN MCBC with platelet count + automated [id number] 05:20:00 Test Item Value Reference Range Interpretation Comments WBC (test code = 6690-2) 11.2 3.5- 10.5 K/L H RBC (test code = 789-8) 3.26 3.93- 5.22 M/L L MCHC (test code = 786-4) 30.1 32.2- 35.5 GM/DL L Hematocrit (test code = 4544-3) 32.9 % 34.1-44.9 L MCV (test code = 787-2) 100.9 fL 79.4-94.8 H MCH (test code = 785-6) 30.4 pg 25.6-32.2 RDW (test code = 788-0) 16.9 % 11.7-14.4 H Platelets (test code = 777-3) 292 150- 450 K/CU MM MPV (test code = 33615-6) 8.6 fL 9.4-12.3 L nRBC (test code = 413) 0 0- 0 /100 WBC % Neutros (test code = 429) 65 % % Lymphs (test code = 430) 21 % % Monos (test code = 431) 10 % % Eos (test code = 432) 4 % % Baso (test code = 437) 0 % # Neutros (test code = 670) 7.24 1.56- 6.13 K/L H # Lymphs (test code = 414) 2.35 1.18- 3.74 K/L # Monos (test code = 415) 1.10 0.24- 0.36 K/L H # Eos (test code = 416) 0.46 0.04- 0.36 K/L H # Baso (test code = 417) 0.03 0.01- 0.08 K/L Immature Granulocytes-Relative 0 % 0-1 (test code = 2801) Lab Interpretation (test code = Abnormal 42922-0) [facility] W/PLT COUNT & AUTO [id number] 05:20:00 Test Item Value Reference Range Interpretation Comments WHITE BLOOD CELL COUNT (BEAKER) 11.2 K/ L 3.5-10.5 H (test code = 775) RED BLOOD CELL COUNT (BEAKER) 3.26 M/ L 3.93-5.22 L (test code = 761) HEMOGLOBIN (BEAKER) (test code = 9.9 GM/DL 11.2-15.7 L 410) HEMATOCRIT (BEAKER) (test code = 32.9 % 34.1-44.9 L 411) MEAN CORPUSCULAR VOLUME (BEAKER) 100.9 fL 79.4-94.8 H (test code = 753) MEAN CORPUSCULAR HEMOGLOBIN 30.4 pg 25.6-32.2 (BEAKER) (test code = 751) MEAN CORPUSCULAR HEMOGLOBIN CONC 30.1 GM/DL 32.2-35.5 L (BEAKER) (test code = 752) RED CELL DISTRIBUTION WIDTH 16.9 % 11.7-14.4 H (BEAKER) (test code = 412) PLATELET COUNT (BEAKER) (test 292 K/CU MM 150-450 code = 756) MEAN PLATELET VOLUME (BEAKER) 8.6 fL 9.4-12.3 L (test code = 754) NUCLEATED RED BLOOD CELLS 0 /100 WBC 0-0 (BEAKER) (test code = 413) NEUTROPHILS RELATIVE PERCENT 65 % (BEAKER) (test code = 429) LYMPHOCYTES RELATIVE PERCENT 21 % (BEAKER) (test code = 430) MONOCYTES RELATIVE PERCENT 10 % (BEAKER) (test code = 431) EOSINOPHILS RELATIVE PERCENT 4 % (BEAKER) (test code = 432) BASOPHILS RELATIVE PERCENT 0 % (BEAKER) (test code = 437) NEUTROPHILS ABSOLUTE COUNT 7.24 K/ L 1.56-6.13 H (BEAKER) (test code = 670) LYMPHOCYTES ABSOLUTE COUNT 2.35 K/ L 1.18-3.74 (BEAKER) (test code = 414) MONOCYTES ABSOLUTE COUNT (BEAKER) 1.10 K/ L 0.24-0.36 H (test code = 415) EOSINOPHILS ABSOLUTE COUNT 0.46 K/ L 0.04-0.36 H (BEAKER) (test code = 416) BASOPHILS ABSOLUTE COUNT (BEAKER) 0.03 K/ L 0.01-0.08 (test code = 417) IMMATURE GRANULOCYTES-RELATIVE 0 % 0-1 PERCENT (BEAKER) (test code = 2801) POC-Glucose [id number] 23:25:00 Test Item Value Reference Range Interpretation Comments POC-Glucose Meter (test 123 mg/dL 70-110 H : TE STED AT [facility] code = 1538) [address] [facility], 770 30: Amusement Equipment Operator/Techni nader ID = [id number] for Julieth Leblanc Lab Interpretation (test Abnormal code = 57775-4) [facility] [id number] 23:25:00 Test Item Value Reference Range Interpretation Comments POC-GLUCOSE METER 123 mg/dL 70-110 H : TESTED A T [facility] 6720 (AKER) (test code = TASHA Olena [facility], 1538) [address]: Amusement Equipment Operator/Techni nader ID = [id number] for Jluieth Santamaria SARS-CoV2/RT-PCR (Asymptomatic ONLY)2020-02-15 11:04:00 Test Item Value Reference Range Interpretation Comments SARS-COV2/RT-PCR (test code = Negative Not Detected, Negative 25840-4) SARS-COV-2 PERFORMING LAB CPL (test code = 64083-1) [facility] REF LAB[facility]2020-02-15 11:04:00 Test Item Value Reference Range Interpretation Comments SARS-COV2/RT-PCR (test code = Negative Not Detected, Negative 7357345) SARS-COV-2 PERFORMING LAB CPL (test code = 2440647) Creatinine, random [id number] 05:09:00 Test Item Value Reference Range Interpretation Comments Creatinine, Ur 29.2 mg/dL (test code = 2161-8) MINERVA (test code = Reference Range: No MINERVA) NormalsOperator ID - ERASTO [facility] random [id number] 05:09:00 Test Item Value Reference Range Interpretation Comments Sodium Urine (test 32 meq/L code = 2955-3) MINERVA (test code = Reference Range: No MINERVA) NormalsOperator ID - ERASTO W [facility] Nitrogen, random [id number] 05:09:00 Test Item Value Reference Range Interpretation Comments Urea Nitrogen, Ur 619 mg/dL (test code = 3095-7) MINERVA (test code = Reference Range: No MINERVA) NormalsOperator ID - ERASTO W [facility] RANDOM [id number] 05:09:00 Test Item Value Reference Range Interpretation Comments CREATININE URINE (BEAKER) (test 29.2 mg/dL code = 375) Reference Range: No NormalsOperator ID - ERASTO WSODIUM, RANDOM [id number] 05:09:00 Test Item Value Reference Range Interpretation Comments SODIUM URINE (BEAKER) (test code = 32 meq/L 243) Reference Range: No NormalsOperator ID - ERASTO WUREA NITROGEN, RANDOM URINE 2020-02-15 05:09:00 Test Item Value Reference Range Interpretation Comments UREA NITROGEN URINE (BEAKER) (test 619 mg/dL code = 538) Reference Range: No NormalsOperator ID - ERASTO WBASIC METABOLIC [id number] 04:58:00 Test Item Value Reference Range Interpretation Comments SODIUM (BEAKER) 141 meq/L 136-145 (test code = 381) POTASSIUM (BEAKER) 3.1 meq/L 3.5-5.1 L (test code = 379) CHLORIDE (BEAKER) 105 meq/L 98-107 (test code = 382) CO2 (BEAKER) (test 21 meq/L 22-29 L code = 355) BLOOD UREA NITROGEN 80 mg/dL 7-21 H (BEAKER) (test code = 354) CREATININE (BEAKER) 1.45 mg/dL 0.57-1.25 H (test code = 358) GLUCOSE RANDOM 65 mg/dL 70-105 L (BEAKER) (test code = 652) CALCIUM (BEAKER) 8.8 mg/dL 8.4-10.2 (test code = 697) EGFR (BEAKER) (test 35 mL/min/1.73 ESTIMA LUIS GFR IS code = 1092) sq m NOT ACCURATE CREATININE CLEARANCE IN PREDICTING GLOMERULAR FILTRATION RATE . ESTIMATED GFR I S NOT APPLICABLE FOR DIALYSIS PATIEN TS. Amusement Equipment Operator ID - ERASTO [facility] W/PLT COUNT & AUTO [id number] 04:36:00 Test Item Value Reference Range Interpretation Comments WHITE BLOOD CELL COUNT (BEAKER) 13.9 K/ L 3.5-10.5 H (test code = 775) RED BLOOD CELL COUNT (BEAKER) 3.18 M/ L 3.93-5.22 L (test code = 761) HEMOGLOBIN (BEAKER) (test code = 9.7 GM/DL 11.2-15.7 L 410) HEMATOCRIT (BEAKER) (test code = 31.1 % 34.1-44.9 L 411) MEAN CORPUSCULAR VOLUME (BEAKER) 97.8 fL 79.4-94.8 H (test code = 753) MEAN CORPUSCULAR HEMOGLOBIN 30.5 pg 25.6-32.2 (BEAKER) (test code = 751) MEAN CORPUSCULAR HEMOGLOBIN CONC 31.2 GM/DL 32.2-35.5 L (BEAKER) (test code = 752) RED CELL DISTRIBUTION WIDTH 16.2 % 11.7-14.4 H (BEAKER) (test code = 412) PLATELET COUNT (BEAKER) (test 281 K/CU MM 150-450 code = 756) MEAN PLATELET VOLUME (BEAKER) 8.8 fL 9.4-12.3 L (test code = 754) NUCLEATED RED BLOOD CELLS 0 /100 WBC 0-0 (BEAKER) (test code = 413) NEUTROPHILS RELATIVE PERCENT 76 % (BEAKER) (test code = 429) LYMPHOCYTES RELATIVE PERCENT 15 % (BEAKER) (test code = 430) MONOCYTES RELATIVE PERCENT 8 % (BEAKER) (test code = 431) EOSINOPHILS RELATIVE PERCENT 1 % (BEAKER) (test code = 432) BASOPHILS RELATIVE PERCENT 0 % (BEAKER) (test code = 437) NEUTROPHILS ABSOLUTE COUNT 10.58 K/ L 1.56-6.13 H (BEAKER) (test code = 670) LYMPHOCYTES ABSOLUTE COUNT 2.02 K/ L 1.18-3.74 (BEAKER) (test code = 414) MONOCYTES ABSOLUTE COUNT (BEAKER) 1.09 K/ L 0.24-0.36 H (test code = 415) EOSINOPHILS ABSOLUTE COUNT 0.11 K/ L 0.04-0.36 (BEAKER) (test code = 416) BASOPHILS ABSOLUTE COUNT (BEAKER) 0.02 K/ L 0.01-0.08 (test code = 417) IMMATURE GRANULOCYTES-RELATIVE 0 % 0-1 PERCENT (BEAKER) (test code = 2801) FL, [id number] 16:33:00Reason for exam:->ObstipationFINAL REPORT Gastrografin enema CLINICAL HISTORY: Constipation DISCUSSION: Sco ut film of the abdomen demonstrates distended colon with large amount of fecal content. After the rectal tube is advanced into the rectum and the balloon inflated (performed by the technologist), Gastrografin is infused into the rectum in a retrograde fashion via gravity, until the transverse colon is opacified. Exam is limited by extensive leakage of contrast around the rectal tube. There is extensive fecal impaction in the rectum. Fluoroscopy time: 2.3 minutes Number of images obtained : 6 Signed:Emerson Alonzo MDReport Verified Date/Time: 02/14/2020 16:33:51 Reading Location: [address] Consult Reading Room [facility] [id number] 16:33:00Interface, External Ris In - 02/14/2020 6:53 PM CDTFINAL REPORT Gastrografinenema CLINICAL HISTORY: Constipation DISCUSSION: [employer] Consultant film of the abdomen demonstrates distended colon with large amount of fecal content. After the rectal tube is advanced into the rectum and the balloon inflated (performed by the technologist), Gastrografin is infused into the rectum in a retrograde fashion via gravity, until the transverse colon is opacified. Exam is limited by extensive leakage of contrast around the rectal tube. There is extensive fecal impaction in the rectum. Fluoroscopy time: 2.3 minutes Number of images obtained : 6 Signed: Emerson Alonzo Verified Date/Time: 02/14/2020 16:33:51 Reading Location: [facility] B1 C013X [facility] AP 2020-02-14 15:49:00Reason for exam:->abd distentionFINAL REPORT Technique: Two views of the abdomen dated 02/14/2020 History: Abd d istention Comparison: None Impression: There is fecal impaction of the rectum and a large amount of stool throughout the sigmoid colon. No air filled, dilated loops of bowel to suggest obstruction. No free intraperitoneal air. Bones are osteopenic. Signed: Bj Adornoeport Verified Date/Time: 02/14/2020 15:49:08 Reading Location: [address] Radiology Reading Room U/S, RENAL, [id number] 13:17:00Reason for exam:->hydronephrosisFINAL REPORT Technique: Grayscale and color doppler renal ultrasound was performed on 02/14/2020 Clinical History: Hydronephrosis. Comparison Study: None. Findings: The right kidney measures 8.8 x 4.5 x 4.0 cm and left kidney measures 9.4 x 4.4 x 3.8 cm. There is marked dilatation of the right renal pelvis and moderate dilatation of the renal calyces. There is no evidence of nep hrolithiasis or renal mass on either side. The echogenicity is normal bilaterally. Color flow is documented to both kidneys. The bladder is decompressed by a Moore catheter. Impression: Marked dilatation of the right renal pelvis and moderate dilatation of the renal calyces. Signed: Bj Adornoeport Verified Date/Time: 02/14/2020 13:17:41 Reading Location: [address] Radiology ReadingRoom BASIC METABOLIC [id number] 12:27:00 Test Item Value Reference Range Interpretation Comments SODIUM (BEAKER) 138 meq/L 136-145 (test code = 381) POTASSIUM (BEAKER) 3.3 meq/L 3.5-5.1 L (test code = 379) CHLORIDE (BEAKER) 101 meq/L 98-107 (test code = 382) CO2 (BEAKER) (test 19 meq/L 22-29 L code = 355) BLOOD UREA NITROGEN 100 mg/dL 7-21 H (BEAKER) (test code = 354) CREATININE (BEAKER) 1.96 mg/dL 0.57-1.25 H (test code = 358) GLUCOSE RANDOM 66 mg/dL 70-105 L (BEAKER) (test code = 652) CALCIUM (BEAKER) 9.1 mg/dL 8.4-10.2 (test code = 697) EGFR (BEAKER) (test 24 mL/min/1.73 ESTIMA LUIS GFR IS code = 1092) sq m NOT ACCURATE CREATININE CLEARANCE IN PREDICTING GLOMERULAR FILTRATION RATE . ESTIMATED GFR I S NOT APPLICABLE FOR DIALYSIS PATIEN TS. Amusement Equipment Operator ID - NTPBASI METABOLIC [id number] 07:13:00 Test Item Value Reference Range Interpretation Comments SODIUM (BEAKER) 137 meq/L 136-145 (test code = 381) POTASSIUM (BEAKER) 3.3 meq/L 3.5-5.1 L (test code = 379) CHLORIDE (BEAKER) 100 meq/L 98-107 (test code = 382) CO2 (BEAKER) (test 21 meq/L 22-29 L code = 355) BLOOD UREA NITROGEN 111 mg/dL 7-21 H (BEAKER) (test code = 354) CREATININE (BEAKER) 2.24 mg/dL 0.57-1.25 H (test code = 358) GLUCOSE RANDOM 68 mg/dL 70-105 L (BEAKER) (test code = 652) CALCIUM (BEAKER) 9.1 mg/dL 8.4-10.2 (test code = 697) EGFR (BEAKER) (test 21 mL/min/1.73 ESTIMA LUIS GFR IS code = 1092) sq m NOT ACCURATE CREATININE CLEARANCE IN PREDICTING GLOMERULAR FILTRATION RATE . ESTIMATED GFR I S NOT APPLICABLE FOR DIALYSIS PATIEN TS. Amusement Equipment Operator ID - IVY BOSCH, [id number] 02:18:00 Test Item Value Reference Range Interpretation Comments ABO Grouping (test code = 2588) O Rh Factor (test code = 2589) [facility], [id number] 02:00:00 Test Item Value Reference Range Interpretation Comments ABO/RH AUTOMATED (BEAKER) (test O POSITIVE code = 2260) Ab Scrn (test code = 890-4) NEGATIVE [facility] & AUTO [id number] 01:47:00 Test Item Value Reference Range Interpretation Comments WHITE BLOOD CELL COUNT (BEAKER) 10.6 K/ L 3.5-10.5 H (test code = 775) RED BLOOD CELL COUNT (BEAKER) 3.76 M/ L 3.93-5.22 L (test code = 761) HEMOGLOBIN (BEAKER) (test code = 11.3 GM/DL 11.2-15.7 410) HEMATOCRIT (BEAKER) (test code = 35.4 % 34.1-44.9 411) MEAN CORPUSCULAR VOLUME (BEAKER) 94.1 fL 79.4-94.8 (test code = 753) MEAN CORPUSCULAR HEMOGLOBIN 30.1 pg 25.6-32.2 (BEAKER) (test code = 751) MEAN CORPUSCULAR HEMOGLOBIN CONC 31.9 GM/DL 32.2-35.5 L (BEAKER) (test code = 752) RED CELL DISTRIBUTION WIDTH 16.1 % 11.7-14.4 H (BEAKER) (test code = 412) PLATELET COUNT (BEAKER) (test 327 K/CU MM 150-450 code = 756) MEAN PLATELET VOLUME (BEAKER) 8.8 fL 9.4-12.3 L (test code = 754) NUCLEATED RED BLOOD CELLS 0 /100 WBC 0-0 (BEAKER) (test code = 413) NEUTROPHILS RELATIVE PERCENT 75 % (BEAKER) (test code = 429) LYMPHOCYTES RELATIVE PERCENT 18 % (BEAKER) (test code = 430) MONOCYTES RELATIVE PERCENT 6 % (BEAKER) (test code = 431) EOSINOPHILS RELATIVE PERCENT 0 % (BEAKER) (test code = 432) BASOPHILS RELATIVE PERCENT 0 % (BEAKER) (test code = 437) NEUTROPHILS ABSOLUTE COUNT 8.03 K/ L 1.56-6.13 H (BEAKER) (test code = 670) LYMPHOCYTES ABSOLUTE COUNT 1.87 K/ L 1.18-3.74 (BEAKER) (test code = 414) MONOCYTES ABSOLUTE COUNT (BEAKER) 0.64 K/ L 0.24-0.36 H (test code = 415) EOSINOPHILS ABSOLUTE COUNT 0.04 K/ L 0.04-0.36 (BEAKER) (test code = 416) BASOPHILS ABSOLUTE COUNT (BEAKER) 0.02 K/ L 0.01-0.08 (test code = 417) IMMATURE GRANULOCYTES-RELATIVE 0 % 0-1 PERCENT (BEAKER) (test code = 2801) Urinalysis with Microscopic If [id number] 23:38:00 Test Item Value Reference Range Interpretation Comments Color, UA (test code = Yellow 5778-6) Clarity, UA (test code = Hazy 5767-9) Specific [place], UA (test 1.014 1.001-1.035 code = 5811-5) pH, UA (test code = 5.0 5.0-8.0 5803-2) Protein, UA (test code = Negative Negative 83882-8) Glucose, UA (test code = Negative Negative 365) Ketones, UA (test code = Trace Negative A 2514-8) Bilirubin, UA (test code = Negative Negative 82939-7) Blood, UA (test code = Negative Negative 58890-9) Nitrite, UA (test code = Negative Negative 5802-4) Leukocytes, UA (test code Large Negative A = 5799-2) Urobilinogen, UA (test 0.2 mg/dL 0.2-1 code = 98390-3) Specimen Source (test code = 2795) MINERVA (test code = MINERVA) Amusement Equipment Operator ID - [auto]Amusement Equipment Operator ID - tech Lab Interpretation (test Abnormal code = 62736-2) [facility]inalysis Microscopic [id number] 23:38:00 Test Item Value Reference Range Interpretation Comments RBC, UA (test code = 3 /HPF 87271-5) WBC, UA (test code = 8 /HPF 5821-4) Bacteria, UA (test code = Occasional 61258-3) Mucus (test code = 8247-9) Rare Hyaline Casts, UA (test 8 /LPF code = 06121-1) MINERVA (test code = MINERVA) Amusement Equipment Operator ID - tech [facility]INALYSIS WITH MICROSCOPIC IF [id number] 23:38:00 Test Item Value Reference Range Interpretation Comments COLOR (BEAKER) (test code = 470) Yellow CLARITY (BEAKER) (test code = 469) Hazy SPECIFIC GRAVITY UA (BEAKER) (test 1.014 1.001-1.035 code = 468) PH UA (BEAKER) (test code = 467) 5.0 5.0-8.0 PROTEIN UA (BEAKER) (test code = Negative Negative 464) GLUCOSE UA (BEAKER) (test code = Negative Negative 365) KETONES UA (BEAKER) (test code = Trace Negative A 371) BILIRUBIN UA (BEAKER) (test code = Negative Negative 462) BLOOD UA (BEAKER) (test code = 461) Negative Negative NITRITE UA (BEAKER) (test code = Negative Negative 465) LEUKOCYTE ESTERASE UA (BEAKER) Large Negative A (test code = 466) UROBILINOGEN UA (BEAKER) (test code 0.2 mg/dL 0.2-1.0 = 463) SOURCE(BEAKER) (test code = 2795) Amusement Equipment Operator ID - [auto]Amusement Equipment Operator ID - techURINALYSIS [id number] 23:38:00 Test Item Value Reference Range Interpretation Comments RBC UA (BEAKER) (test code = 519) 3 /HPF WBC UA (BEAKER) (test code = 520) 8 /HPF BACTERIA (BEAKER) (test code = Occasional 517) MUCUS (BEAKER) (test code = 1574) Rare HYALINE CASTS (BEAKER) (test code 8 /LPF = 514) Amusement Equipment Operator ID - techBASIC METABOLIC [id number] 23:11:00 Test Item Value Reference Range Interpretation Comments SODIUM (BEAKER) 134 meq/L 136-145 L (test code = 381) POTASSIUM (BEAKER) 3.7 meq/L 3.5-5.1 (test code = 379) CHLORIDE (BEAKER) 97 meq/L 98-107 L (test code = 382) CO2 (BEAKER) (test 21 meq/L 22-29 L code = 355) BLOOD UREA NITROGEN 119 mg/dL 7-21 H (BEAKER) (test code = 354) CREATININE (BEAKER) 2.57 mg/dL 0.57-1.25 H (test code = 358) GLUCOSE RANDOM 82 mg/dL 70-105 (BEAKER) (test code = 652) CALCIUM (BEAKER) 9.6 mg/dL 8.4-10.2 (test code = 697) EGFR (BEAKER) (test 18 mL/min/1.73 ESTIMA LUIS GFR IS code = 1092) sq m NOT ACCURATE CREATININE CLEARANCE IN PREDICTING GLOMERULAR FILTRATION RATE . ESTIMATED GFR I S NOT APPLICABLE FOR DIALYSIS PATIEN TS. Amusement Equipment Operator ID - PIAYA LHepatic function [id number] 23:06:00 Test Item Value Reference Range Interpretation Comments Protein, Total (test code 8.3 6.0- 8.3 gm/dL = 2885-2) Albumin (test code = 4.1 g/dL 3.5-5 70239-2) Total Bilirubin (test code 0.6 mg/dL 0.2-1.2 = 1975-2) Bilirubin, Direct (test 0.3 mg/dL 0.1-0.5 code = 1968-7) Alkaline Phosphatase (test 78 U/L 40-150 code = 6768-6) AST (test code = 1920-8) 34 U/L 5-34 ALT (test code = 1742-6) 13 U/L 6-55 MINERVA (test code = MINERVA) Amusement Equipment Operator ID - IVY L Lab Interpretation (test Normal code = 22188-8) [facility] HospitalHEPATIC FUNCTION [id number] 23:06:00 Test Item Value Reference Range Interpretation Comments TOTAL PROTEIN (BEAKER) (test code = 8.3 gm/dL 6.0-8.3 770) ALBUMIN (BEAKER) (test code = 1145) 4.1 g/dL 3.5-5.0 BILIRUBIN TOTAL (BEAKER) (test code 0.6 mg/dL 0.2-1.2 = 377) BILIRUBIN DIRECT (BEAKER) (test 0.3 mg/dL 0.1-0.5 code = 706) ALKALINE PHOSPHATASE (BEAKER) (test 78 U/L 40-150 code = 346) AST (SGOT) (BEAKER) (test code = 34 U/L 5-34 353) ALT (SGPT) (BEAKER) (test code = 13 U/L 6-55 347) Amusement Equipment Operator ID - PIAYA LProthrombin time/[id number] 22:54:00 Test Item Value Reference Range Interpretation Comments Protime (test code = 15.3 11.9- 14.2 H 5902-2) seconds INR (test code = 1.2 <=5.9 6301-6) MINERVA (test code = MINERVA) Effective 02/06/2019: PT Reference Range ChangeNew: 11.9-14.2 Previous: 11.7-14.7 RECOMMENDED COUMADIN/WARFARIN INR THERAPY RANGESSTANDARD DOSE: 2.0-3.0 Includes: PROPHYLAXIS for venous thrombosis, systemic embolization; TREATMENT for venous thrombosis and/or pulmonary embolus.HIGH RISK: Target INR is 2.5-3.5 for patients wiht mechanical heart valves. Lab Interpretation Abnormal (test code = 48751-5) [facility] HospitalPROTHROMBIN [id number] 22:54:00 Test Item Value Reference Range Interpretation Comments PROTIME (BEAKER) (test code = 15.3 seconds 11.9-14.2 H 759) INR (BEAKER) (test code = 370) 1.2 <=5.9 Effective 02/06/2019: PT Reference Range ChangeNew: 11.9-14.2 Previous: 11.7- 14.7RECOMMENDED COUMADIN/WARFARIN INR THERAPY RANGESSTANDARD DOSE: 2.0-3.0 Includes: PROPHYLAXIS for venous thrombosis, systemic embolization; TREATMENT for venous thrombosis and/or pulmonary embolus.HIGH RISK: Target INR is2.5-3.5 for patients wiht mechanical heart valves.CBC W/PLT COUNT & AUTO [id number] 22:48:00 Test Item Value Reference Range Interpretation Comments WHITE BLOOD CELL COUNT (BEAKER) 11.4 K/ L 3.5-10.5 H (test code = 775) RED BLOOD CELL COUNT (BEAKER) 3.63 M/ L 3.93-5.22 L (test code = 761) HEMOGLOBIN (BEAKER) (test code = 11.0 GM/DL 11.2-15.7 L 410) HEMATOCRIT (BEAKER) (test code = 34.7 % 34.1-44.9 411) MEAN CORPUSCULAR VOLUME (BEAKER) 95.6 fL 79.4-94.8 H (test code = 753) MEAN CORPUSCULAR HEMOGLOBIN 30.3 pg 25.6-32.2 (BEAKER) (test code = 751) MEAN CORPUSCULAR HEMOGLOBIN CONC 31.7 GM/DL 32.2-35.5 L (BEAKER) (test code = 752) RED CELL DISTRIBUTION WIDTH 16.1 % 11.7-14.4 H (BEAKER) (test code = 412) PLATELET COUNT (BEAKER) (test 330 K/CU MM 150-450 code = 756) MEAN PLATELET VOLUME (BEAKER) 8.8 fL 9.4-12.3 L (test code = 754) NUCLEATED RED BLOOD CELLS 0 /100 WBC 0-0 (BEAKER) (test code = 413) NEUTROPHILS RELATIVE PERCENT 76 % (BEAKER) (test code = 429) LYMPHOCYTES RELATIVE PERCENT 18 % (BEAKER) (test code = 430) MONOCYTES RELATIVE PERCENT 6 % (BEAKER) (test code = 431) EOSINOPHILS RELATIVE PERCENT 0 % (BEAKER) (test code = 432) BASOPHILS RELATIVE PERCENT 0 % (BEAKER) (test code = 437) NEUTROPHILS ABSOLUTE COUNT 8.66 K/ L 1.56-6.13 H (BEAKER) (test code = 670) LYMPHOCYTES ABSOLUTE COUNT 1.99 K/ L 1.18-3.74 (BEAKER) (test code = 414) MONOCYTES ABSOLUTE COUNT (BEAKER) 0.63 K/ L 0.24-0.36 H (test code = 415) EOSINOPHILS ABSOLUTE COUNT 0.02 K/ L 0.04-0.36 L (BEAKER) (test code = 416) BASOPHILS ABSOLUTE COUNT (BEAKER) 0.02 K/ L 0.01-0.08 (test code = 417) IMMATURE GRANULOCYTES-RELATIVE 0 % 0-1 PERCENT (BEAKER) (test code = 1688)
[2020-09-09 17:38] LABS: Absolute Lymphocytes (CBC) 1.2 K/uL (0.7-4.9); Basophils % 0.1 % (0-1.3); Hematocrit 34.3 % (36.0-45.0); Lymphocytes % 8.2 % (15.3-44.8); MPV 7.5 fL (7.6-11.3); RBC Red Blood Cell Count 3.59 M/uL (3.86-4.86)
[2020-09-09 17:42] LABS: Protime INR 1.19
[2020-09-09 17:53] LABS: Albumin 2.6 g/dL (3.4-5.0); Bilirubin Direct 0.2 mg/dL (0-0.2); Bilirubin Total 0.5 mg/dL (0.2-1.0); Potassium 4.3 mmol/L (3.5-5.1); Protein, Total 7.4 g/dL (6.4-8.2); Troponin (Emerg Dept Use Only) 0.28 ng/mL (0.0-0.045)
--- NOTE | 2020-09-09 18:28 | RAD REPORT ---
EXAM DESCRIPTION: RAD - Chest Single View - 09/09/2020 6:16 pm CLINICAL HISTORY: AMS Chest pain. COMPARISON: Chest Single View dated 02/13/2020; Chest Pa And Lat (2 Views) dated 10/16/2019; CHEST SINGL E VIEW dated 03/12/2015; CHEST PA AND LAT 2 VIEW dated 01/21/2015 FINDINGS: Portable technique limits examination quality. Chronic elevated right hemidiaphragm is again noted. The lungs are mildly emphysematous. The heart is upper limit normal in size with a tortuous thoracic aorta. Degenerative changes are present in both shoulders.
[2020-09-09 18:46] LABS: Urine Bacteria LOADED /HPF (<20); Urine RBC <5 /HPF (NONE SEEN)
[2020-09-09] MEDS ORDERED: NA CHLORIDE 0.9% 500 ML ONE (18:47)
[2020-09-09] MEDS ORDERED: NA CHLORIDE 0.9% 1,000 ML ONE ×2 (18:47→23:57)
[2020-09-09 19:15] LABS: Urine Blood NEGATIVE (NEG); Urine Glucose NEGATIVE (NEG); Urine Protein NEGATIVE (NEG)
--- NOTE | 2020-09-09 19:16 | RAD REPORT ---
EXAM DESCRIPTION: CT - Chest Abd Pelvis Wo Con - 09/09/2020 7:03 pm CLINICAL HISTORY: Chest and abdomen pain. AMS COMPARISON: Chest Abd Pelvis Wo Con dated 02/13/2020 TECHNIQUE: Limited noncontrast study was performed. All CT scans are performed using dose optimization technique as appropriate and may include automated exposure control or mA/KV adjustment according to patient size. FINDINGS: Elevated right hemidiaphragm is seen with linear scarring in the right lung base.Lung fiel ds are grossly clear.No pleural or pericardial effusion.No intrathoracic adenopathy. Several chronic right-sided ununited rib fractures. The liver, spleen, pancreas, adrenal glands are within normal limits. Punctate bilateral nephrolithia sis is present without hydronephrosis. 2 mm calculus is present in the left renal pelvis. No bowel obstruction, free air, free fluid or abscess. Severe fecal retention is present with rectum distended to 10 cm and sigmoid colon distended to 9 cm. No pathologic lymphadenopathy in the abdomen or pelvis. Ununited fracture of the proximal right femur involving the femoral head and neck seen. IMPRESSION: Severe fecal retention with marked colonic distention. Ununited fracture proximal right femur involving the femoral head and neck region. This is a new find ing since February 2020. Punctate bilateral nephrolithiasis.
--- NOTE | 2020-09-09 19:18 | RAD REPORT ---
EXAM DESCRIPTION: CT - Head Brain Wo Cont - 09/09/2020 7:04 pm CLINICAL HISTORY: CONFUSED Headache, drowsiness COMPARISON: HEAD BRAIN W O CONTRAST dated 03/12/2015 TECHNIQUE: All CT scans are performed using dose optimization technique as appropriate and may inclu de automated exposure control or mA/KV adjustment according to patient size. FINDINGS: No intracranial hemorrhage, hydrocephalus or extra-axial fluid collection.Advanced general ized brain atrophy is present with moderate periventricular and deep white matter chronic microvascul ar ischemic changes.No areas of brain edema or evidence of midline shift. The paranasal sinuses and mastoids are clear. The calvarium is intact. IMPRESSION: No acute intracranial abnormality.
--- NOTE | 2020-09-09 21:11 | EDPHYS ---
Physician Documentation [facility] Name: Haylee Kumar Age: 80 yrs Sex: Female : 1940 Arrival Date: 09/09/2020 Time: 16:21 Bed 25 Private MD: ED Physician Yann Miller HPI: 09/09 18:53 This 80 yrs old Female presents to ER via EMS with complaints of AMS. kdr 18:53 The patient was found at [facility] and c/o chest pain. Staff stated she was altered kdr (normal is A\T\Ox2) and on arrival to the ED, the patient was not able to give a reliable history and seemed altered. . Onset: The symptoms/episode began/occurred just prior to arrival, today. Severity of symptoms: At their worst the symptoms were moderate in the emergency department the symptoms are unchanged. It is unknown whether or not the patient has had similar symptoms in the past. It is unknown whether or not the patient has recently seen a physician. Historical: - Allergies: 17:09 No Known Allergies; zb - Home Meds: 17:09 Lasix 40 mg Oral tab 1 tab [Active]; folic acid 1 mg Oral tab [Active]; acetaminophen zb 325 mg Oral tab [Active]; Pepcid 20 mg Oral tab [Active]; promethazine 25 mg Oral tab [Active]; Seroquel 50 mg Oral tab [Active]; spironolactone 25 mg Oral tab [Active]; trazodone 50 mg Oral tab [Active]; Zyrtec 10 mg Oral tab [Active]; senna 8.6 mg oral tab [Active]; Ativan 0.5 mg Oral tab [Active]; ipratropium-albuterol 0.5 mg-3 mg(2.5 mg base)/3 mL Inhl nebu [Active]; meloxicam 15 mg oral tab [Active]; - PMHx: 17:09 Alzheimers; Anxiety; Arthritis; Dementia; Depression; Hypertension; zb - PSHx: 17:09 Appendectomy; Hysterectomy; Tonsillectomy; zb - Immunization history:: Adult Immunizations up to date. - Social history:: Smoking status: unknown. ROS: 18:53 Constitutional: Unable to obtain kdr 18:53 Unable to obtain ROS due to altered mental status. Exam: 16:56 ECG was reviewed by the Attending Physician. kdr Vital Signs: 16:57 BP 93 / 57; Pulse 114; Resp 22; Temp 99.1; Pulse Ox 94% ; Weight 47.63 kg; Height 5 ft. zb 0 in. (152.40 cm); 17:30 BP 98 / 77; Pulse 94; Resp 16; Pulse Ox 95% on R/A; zb 18:30 BP 98 / 83; Pulse 101; Resp 14; Pulse Ox 95% on R/A; zb 19:30 BP 99 / 56; Pulse 91; Resp 14; Pulse Ox 96% on R/A; zb 20:30 BP 109 / 71; Pulse 70; Resp 16; Pulse Ox 95% on R/A; zb 21:30 BP 112 / 76; Pulse 73; Resp 16; Pulse Ox 94% on R/A; zb 22:30 BP 108 / 67; Pulse 83; Resp 15; Pulse Ox 93% on R/A; zb 23:30 BP 109 / 63; Pulse 99; Resp 16; Pulse Ox 95% on R/A; zb 16:57 Body Mass Index 20.51 (47.63 kg, 152.40 cm) zb MDM: 21:08 Differential Diagnosis altered mental status, sepsis, flu. Data reviewed: vital signs, [facility] nurses notes, EMS record, lab test result(s), cardiac enzymes, CBC, electrolytes, urinalysis, EKG, radiologic studies, CT scan, plain films. Data interpreted: Pulse oximetry: on 2L(s) per nasal canula, is 96 %. Interpretation: acceptable. Counseling: I had a detailed discussion with the patient and/or guardian regarding: the historical points, exam findings, and any diagnostic results supporting the discharge/admit diagnosis, lab results, radiology results, the need for further work-up and treatment in the hospital. Response to treatment: the patient's symptoms have mildly improved after treatment. 21:10 Patient medically screened. [facility] 09/09 17:24 Order name: Amylase, Serum; Complete Time: 18:48 [facility] 09/09 17:24 Order name: Basic Metabolic Panel; Complete Time: 18:48 [facility] 09/09 17:24 Order name: Blood Culture Adult (2) [facility] 09/09 17:24 Order name: CBC with Diff; Complete Time: 18:48 [facility] 09/09 17:24 Order name: Ckmb; Complete Time: 18:48 kdr 09/09 17:24 Order name: CPK; Complete Time: 18:48 kdr 09/09 17:24 Order name: Lactate; Complete Time: 18:48 kdr 09/09 17:24 Order name: LFT's; Complete Time: 18:48 kdr 09/09 17:24 Order name: Lipase; Complete Time: 18:48 kdr 09/09 17:24 Order name: Procalcitonin; Complete Time: 18:48 kdr 09/09 17:24 Order name: Protime (+inr); Complete Time: 18:48 kdr 09/09 17:24 Order name: Ptt, Activated; Complete Time: 18:48 kdr 09/09 17:24 Order name: Troponin (emerg Dept Use Only); Complete Time: 18:48 kdr 09/09 17:24 Order name: Urine Microscopic Only; Complete Time: 18:48 kdr 09/09 17:24 Order name: Chest Single View XRAY; Complete Time: 18:48 kdr 09/09 17:25 Order name: CT Head Brain wo Cont; Complete Time: 19:24 kdr 09/09 18:20 Order name: Urine Dipstick--Ancillary (enter results); Complete Time: 19:24 em1 09/09 18:44 Order name: Chest Abd Pelvis Wo Con; Complete Time: 19:24 EDMS 09/09 18:48 Order name: Urine Culture EDMD 09/09 21:18 Order name: CBC with Automated Diff EDMS 09/09 21:18 Order name: CBC with Automated Diff EDMD 09/09 21:18 Order name: Comprehensive Metabolic Panel EDMD 09/09 21:18 Order name: Comprehensive Metabolic Panel EDMD 09/09 23:40 Order name: COVID-19 sg 09/10 01:13 Order name: CORONAVIRUS EDMD 09/10 02:02 Order name: SARS-COV-2 RT PCR EDMD 09/10 08:08 Order name: Manual Differential EDMD 09/10 08:54 Order name: RAD EDMD 09/09 17:24 Order name: Accucheck; Complete Time: 18:16 kdr 09/09 17:24 Order name: Cardiac monitoring; Complete Time: 18:00 kdr 09/09 17:24 Order name: EKG - Nurse/Tech; Complete Time: 18:00 kdr 09/09 17:24 Order name: IV Saline Lock - Large Bore; Complete Time: 18:00 kdr 09/09 17:24 Order name: Labs collected and sent; Complete Time: 18:01 kdr 09/09 17:24 Order name: O2 Per Protocol; Complete Time: 18:01 kdr 09/09 17:24 Order name: O2 Sat Monitoring; Complete Time: 18:01 kdr 09/09 17:24 Order name: Urine Dipstick-Ancillary (obtain specimen); Complete Time: 18:14 kdr 09/09 21:18 Order name: CONS Pharmacy Consult EDMS 09/09 21:18 Order name: Heart Healthy EDMS EC:56 Rate is 89 beats/min. Rhythm is regular, Normal Sinus Rhythm with No ectopy. Left axis kdr deviation noted. CA interval is normal. QRS interval is normal. QT interval is normal. Clinical impression: NSR w/ Non-specific ST/T Changes. Administered Medications: 18:46 Drug: NS 0.9% (30 ml/kg) 30 ml/kg Route: IV; Rate: bolus; Site: right forearm; zb 20:00 Follow up: Response: No adverse reaction; IV Status: Completed infusion; IV Intake: zb 1500ml 19:50 Drug: Rocephin - (cefTRIAXone) 1 grams Route: IVPB; Infused Over: 30 mins; Site: right zb forearm; 20:20 Follow up: Response: No adverse reaction; IV Status: Completed infusion; IV Intake: 50mlzb Disposition: 09/09/20 21:10 Hospitalization ordered by Forrest Robles for Inpatient Admission. Preliminary diagnosis are UTI, Altered Mental Status, Constipation. - Bed requested for Telemetry/MedSurg (Inpatient). - Status is Inpatient Admission. iw - Condition is Stable. - Problem is new. - Symptoms have improved. Addendum: 10/08/2020 07:54 Addendum: . Addendum: EXAM: WDWN WF NAD, Head/Face: no injury, pain or deformity, Eyes: k dr LOBO,ENT: No pain, injury or bleeding, Neck: No injury or deformity, Chest/Axilla: no pain, injury or deformity, FROM, CV: No rubs, gallops or murmurs, regular rate, RESP: CTAB, regular rate, ABG/GI: soft, NT, BS present in all quadrants and normal, Back: no injury or deformity, age related change in mobility, Skin: No rashes, ecchymosis skin turgor fair, Neuro: the patient is moving all extremities but is somnolent and poorly responsive. Psych: NO SI/HI or apparent depression. Signatures: Dispatcher [employer] [facility] Mary Beth Hansen, LINDA MCKEON dw Prashanth Mtz MD MD [facility] Ana Maria Velazquez RN RN iw Geeta Valdes RN RN tl1 Yann Miller MD MD 7 Niki Barajas RN RN zb Corrections: (The following items were deleted from the chart) 09/09 18:44 17:26 Chest Abdomen Pelvis W Con+CT.RAD.BRZ ordered. [facility] 09/10 00:13 09/09 21:10 Hospitalization Ordered by Forrest Robles MD for Inpatient Admission. tl1 Preliminary diagnosis is UTI; Altered Mental Status; Constipation. Bed requested for Telemetry/MedSurg (Inpatient). Status is Inpatient Admission. Condition is Stable. Problem is new. Symptoms have improved. 7 09/10 09:03 00:13 09/09/2020 21:10 Hospitalization Ordered by Forrest Robles MD for Inpatient dw Admission. Preliminary diagnosis is UTI; Altered Mental Status; Constipation. Bed requested for [facility] ER HOLD. Status is Inpatient Admission. Condition is Stable. Problem is new. Symptoms have improved. tl1 10:12 09:03 09/09/2020 21:10 Hospitalization Ordered by Forrest Robles MD for Inpatient iw Admission. Preliminary diagnosis is UTI; Altered Mental Status; Constipation. Bed requested for Telemetry/MedSurg (Inpatient). Status is Inpatient Admission. Condition is Stable. Problem is new. Symptoms have improved. dw
--- NOTE | 2020-09-09 21:11 | ER ---
Nurse's Notes [facility] Name: Haylee Kumar Age: 80 yrs Sex: Female : 1940 Arrival Date: 09/09/2020 Time: 16:21 Bed 25 Private MD: Diagnosis: UTI;Altered Mental Status;Constipation Presentation: 09/09 16:25 Acuity: ANETA 2 zb 16:57 Chief complaint: EMS states: pt coming from [facility]. nurses state that zb patient became alter and she reported chest pain about an hour ago. On arrive oxygen saturation was 92% on room, blood pressure systolic 90's, tachycardic, and AMS. Coronavirus screen: At this time, the client does not indicate any symptoms associated with coronavirus-19. Ebola Screen: No symptoms or risks identified at this time. Initial Sepsis Screen: Does the patient meet any 2 criteria? Altered Mental Status. HR > 90 bpm. Does the patient have a suspected source of infection? No. Patient's initial sepsis screen is negative. Risk Assessment: Do you want to hurt yourself or someone else? Patient reports no desire to harm self or others. Onset of symptoms was September 09, 2020. 16:57 Method Of Arrival: EMS: [facility] zb Triage Assessment: 16:30 General: Appears in no apparent distress. slender, Behavior is calm. zb 16:30 Pain: Unable to use pain scale. Patient is disoriented. EENT: No signs and/or symptoms zb were reported regarding the EENT system. Neuro: Level of Consciousness is awake, confused, lethargic. Cardiovascular: Capillary refill < 3 seconds in bilateral fingers Patient's skin is warm and dry. Respiratory: Airway is patent Respiratory effort is even, unlabored, Respiratory pattern is regular, symmetrical, Breath sounds are clear bilaterally. GI: Abdomen is flat, non-distended. : No signs and/or symptoms were reported regarding the genitourinary system. Derm: Skin is intact, is fragile, is thin. Musculoskeletal: Circulation, motion, and sensation intact. Capillary refill < 3 seconds, in bilateral fingers. Range of motion: intact in BUE unable to assess BLE at this time. pt confused and disoriented. Historical: - Allergies: 17:09 No Known Allergies; zb - Home Meds: 17:09 Lasix 40 mg Oral tab 1 tab [Active]; folic acid 1 mg Oral tab [Active]; acetaminophen zb 325 mg Oral tab [Active]; Pepcid 20 mg Oral tab [Active]; promethazine 25 mg Oral tab [Active]; Seroquel 50 mg Oral tab [Active]; spironolactone 25 mg Oral tab [Active]; trazodone 50 mg Oral tab [Active]; Zyrtec 10 mg Oral tab [Active]; senna 8.6 mg oral tab [Active]; Ativan 0.5 mg Oral tab [Active]; ipratropium-albuterol 0.5 mg-3 mg(2.5 mg base)/3 mL Inhl nebu [Active]; meloxicam 15 mg oral tab [Active]; - PMHx: 17:09 Alzheimers; Anxiety; Arthritis; Dementia; Depression; Hypertension; zb - PSHx: 17:09 Appendectomy; Hysterectomy; Tonsillectomy; zb - Immunization history:: Adult Immunizations up to date. - Social history:: Smoking status: unknown. Screenin:02 Abuse screen: Denies threats or abuse. Denies injuries from another. Nutritional zb screening: No deficits noted. Tuberculosis screening: No symptoms or risk factors identified. Fall Risk No fall in past 12 months (0 pts). Secondary diagnosis (15 points) Alzheimer's, dementia, IV access (20 points). Ambulatory Aid- Crutches/Cane/Walker (15 pts). Gait- Impaired (20 pts.). Mental Status- Overestimates/Forgets Limitations (15 pts.). Total Hou Fall Scale indicates High Risk Score (45 or more points). Fall prevention measures have been instituted. Side Rails Up X 2 Placed Close to Nursing Station Frequent Obs/Assessments Occuring. Assessment: 16:30 Reassessment: see triage assessment. zb 17:30 Reassessment: Patient appears in no apparent distress at this time. Patient and/or zb family updated on plan of care and expected duration. Pain level reassessed. Patient is alert/active/playful, equal unlabored respirations, skin warm/dry/pink. pt aox1. disoriented. unable to assess pain at this time. 18:30 Reassessment: Patient appears in no apparent distress at this time. Patient and/or zb family updated on plan of care and expected duration. Pain level reassessed. spoke to patients daughter, states that she will be coming in from [place]. 19:30 Reassessment: Patient appears in no apparent distress at this time. Patient and/or zb family updated on plan of care and expected duration. Pain level reassessed. pt remains axo1. appears to be sleeping at this time. lights dimmed. no acute distress. 20:10 Reassessment: Patient appears in no apparent distress at this time. Patient and/or zb family updated on plan of care and expected duration. Pain level reassessed. spoke to patient able to states her name. still very lethargic but will response to voice and touch. 21:10 Reassessment: Patient appears in no apparent distress at this time. Patient and/or zb family updated on plan of care and expected duration. Pain level reassessed. pt aox1. daughter was at bedside for discussion w/ provider. pt stated she was cold provided warm blanket. 22:10 Reassessment: Patient appears in no apparent distress at this time. Patient and/or zb family updated on plan of care and expected duration. Pain level reassessed. aox1. no c/o at this time. pt appears to be resting. 23:10 Reassessment: Patient appears in no apparent distress at this time. Patient and/or zb family updated on plan of care and expected duration. Pain level reassessed. pt resting at this time. Vital Signs: 16:57 BP 93 / 57; Pulse 114; Resp 22; Temp 99.1; Pulse Ox 94% ; Weight 47.63 kg; Height 5 ft. zb 0 in. (152.40 cm); 17:30 BP 98 / 77; Pulse 94; Resp 16; Pulse Ox 95% on R/A; zb 18:30 BP 98 / 83; Pulse 101; Resp 14; Pulse Ox 95% on R/A; zb 19:30 BP 99 / 56; Pulse 91; Resp 14; Pulse Ox 96% on R/A; zb 20:30 BP 109 / 71; Pulse 70; Resp 16; Pulse Ox 95% on R/A; zb 21:30 BP 112 / 76; Pulse 73; Resp 16; Pulse Ox 94% on R/A; zb 22:30 BP 108 / 67; Pulse 83; Resp 15; Pulse Ox 93% on R/A; zb 23:30 BP 109 / 63; Pulse 99; Resp 16; Pulse Ox 95% on R/A; zb 16:57 Body Mass Index 20.51 (47.63 kg, 152.40 cm) zb ED Course: 16:21 Patient arrived in ED. em1 16:24 Niki Barajas, RN is Primary Nurse. zb 16:25 Triage completed. zb 16:30 Prashanth Mtz MD is Attending Physician. kdr 16:30 Arm band placed on. EKG completed in triage. Results shown to MD. zb 16:53 Inserted saline lock: 20 gauge in right forearm, using aseptic technique. Blood dh4 collected. 18:12 Moore cath inserted, using sterile technique, 16 Fr., by oh, balloon inflated, urine mh5 specimen collected. 18:15 Urine Microscopic Only Sent. mh5 18:15 Patient has correct armband on for positive identification. Placed in gown. Bed in low mh5 position. Call light in reach. Side rails up X2. Warm blanket given. Pillow given. lunchroom monitor on. Pulse ox on. NIBP on. 18:17 Chest Single View XRAY In Process Unspecified. EDMS 19:02 Attending Physician role handed off by Prashanth Mtz MD 7 19:02 Yann Miller MD is Attending Physician. mh7 19:03 Chest Abd Pelvis Wo Con In Process Unspecified. EDMS 19:03 CT Head Brain wo Cont In Process Unspecified. EDMS 21:09 Forrest Robles MD is Hospitalizing Provider. mh7 21:24 Urine Culture Sent. zb Administered Medications: 18:46 Drug: NS 0.9% (30 ml/kg) 30 ml/kg Route: IV; Rate: bolus; Site: right forearm; zb 20:00 Follow up: Response: No adverse reaction; IV Status: Completed infusion; IV Intake: zb 1500ml 19:50 Drug: Rocephin - (cefTRIAXone) 1 grams Route: IVPB; Infused Over: 30 mins; Site: right zb forearm; 20:20 Follow up: Response: No adverse reaction; IV Status: Completed infusion; IV Intake: 50mlzb Intake: 20:00 IV: 1500ml; Total: 1500ml. zb 20:20 IV: 50ml; Total: 1550ml. zb Outcome: 21:10 Decision to Hospitalize by Provider. mh7 09/10 10:12 Patient left the ED. iw Signatures: Dispatcher [employer] EDPrashanth Garcia MD MD [facility] Ana Maria Velazquez, LINDA RN margarita [place], Diego Gladys [facility], [facility]–1983 Yann Miller MD MD Niki Ingram RN RN zb
[2020-09-09] MEDS ORDERED: MORPHINE 2 MG/ML SYR IV PRN (21:13)
--- NOTE | 2020-09-09 21:13 | P.HP ---
Certification for Inpatient Patient admitted to: Inpatient With expected LOS: >2 Midnights Practitioner: I am a practitioner with admitting privileges, knowledge of patient current condition, hospital course, and medical plan of care. Services: Services provided to patient in accordance with Admission requirements found in Title 42 Section 412.3 of the Code of Federal Regulations Patient History Date of Service: 09/10/20 Reason for admission: AMS History of Present Illness: 80 yrs old female with a past medical history of dementia, hypertension, hyperlipidemia, came to ER for with altered mental status . Patient has a history of dementia is colder provide any history hence most of the history is obtained from the chart review and also talking to the ER physician, patient is more confused than baseline and was evaluated in ER and was found to have UTI and was admitted for further management. Patient denies any fever or chills No chest pain or shortness of breath Patient was admitted for further management of UTI and acute encephalopathy possibly due to UTI and dehydration Allergies latex Allergy (Verified 10/16/19 08:23) Rash tape Allergy (Mild, Uncoded 10/16/19 08:23) Rash Home medications list reviewed: Yes Home Medications: Ergocalciferol (Vitamin D2) [Vitamin D2] 1,250 units PO SEECOM 03/12/15 Folic Acid 1 mg PO DAILY 03/12/15 sulfaSALAzine [AZULFIDINE EN-tabs*] 500 mg PO BID 03/12/15 Acetaminophen [Tylenol] 325 mg PO DAILY 10/16/19 Cranberry Fruit [Cranberry] 400 mg PO DAILY 10/16/19 Furosemide [Lasix] 40 mg PO DAILY 10/16/19 Lactulose [Cephulac] 10 gm PO BID 10/16/19 Morphine Sulfate [Morphine Sulfate ER] 15 mg PO BID 10/16/19 Quetiapine [Seroquel] 50 mg PO BEDTIME 10/16/19 Sennosides/Docusate Sodium [Senna-S Laxative Tablet] 1 each PO DAILY 10/16/19 Spironolactone [Aldactone] 25 mg PO DAILY 10/16/19 Trazodone HCl 50 mg PO BEDTIME 10/16/19 - Past Medical/Surgical History Diabetic: No Past Medical History: Reviewed- Non-Contributory -: HTN -: Rheumatoid Arthritis Past Surgical History: Reviewed- Non-Contributory -: appendectomy -: hysterectomy -: tonsillectomy - Family History Father -: Heart disease Brother -: Heart disease - Social History Smoking Status: Never smoker Alcohol use: No CD- Drugs: No Caffeine use: Yes Review of Systems is unable to be obtained Physical Examination - Vital Signs Temperature: 98.6 F Blood Pressure: 126/82 Pulse: 86 Respirations: 18 - Physical Exam General: Alert, In no apparent distress, Confused HEENT: Atraumatic, Normocephalic Neck: Supple, 2+ carotid pulse no bruit Respiratory: Clear to auscultation bilaterally, Normal air movement Cardiovascular: Regular rate/rhythm, Normal S1 S2 Capillary refill: <2 Seconds Gastrointestinal: Soft and benign, W/out hepatosplenomegaly Musculoskeletal: No clubbing, No swelling, Other (Decresed ROM ) Integumentary: No rashes, No tenderness/swelling Neurological: Other (Alert, Confused ), Dementia Lymphatics: No axilla or inguinal lymphadenopathy - Studies Laboratory Data (last 24 hrs) 09/09/20 17:06: PT 14.0 H, INR 1.19, APTT 25.1 09/09/20 17:06: WBC 14.9 H, Hgb 11.2 L, Hct 34.3 L, Plt Count 495 H 09/09/20 17:06: Sodium 140, Potassium 4.3, BUN 137 H, Creatinine 2.09 H, Glucose 127 H, Total Bilirubin 0.5, AST 18, ALT 13, Alkaline Phosphatase 84, Amylase 14 L, Lipase 40 L Assessment and Plan - Problems (Diagnosis) (1) Acute encephalopathy Current Visit: Yes Status: Acute (2) UTI (urinary tract infection) Current Visit: Yes Status: Acute (3) Dementia Current Visit: Yes Status: Acute Qualifiers: Dementia type: Alzheimer's disease - Plan Acute encephalopathy possibly due to UTI Urinary tract infection Acute kidney injury Dehydration Dementia Hip fracture Constipation NSTEMI possibly type 2 due to UTI Plan Monitor under telemetry CT did not show any acute changes Monitor neuro vital signs Will start on IV hydration Start on IV antibiotics Continue home medications and titrate as needed Renal parameters monitored Give lactulose and Colace for constipation CT of abdomen pelvis showed Severe fecal retention with marked colonic distention & Ununited fracture proximal right femur involving the femoral head and neck region. This is a new finding since February 2020. Will get an x-ray of the Hip Will get Orthopedic consultation in AM if showing fracture Will trend cardiac enzymes GI/DVT prophylaxis Advanced directives full code for now Discharge Plan: Correction Plan to discharge in: Greater than 2 days - Advance Directives Does patient have a Living Will: Yes Does patient have a Durable POA for Healthcare: Yes Time Spent Managing Pts Care (In Minutes): 43
[2020-09-09] MEDS ORDERED: CEFTRIAXONE 1 GM/NS 50 ML 1 GM/50 ML BAG IV SCH (21:17)
[2020-09-09] MEDS ORDERED: CEFTRIAXONE 1000 MG/VIAL ONE (21:31)
[2020-09-09] MEDS ORDERED: NA CHLORIDE 0.9% 50 ML ONE (21:31)
[2020-09-09] MEDS: NA CHLORIDE 0.9% 1,000 ML IV SCH (22:00)
[2020-09-10 06:10] LABS: Albumin 2.4 g/dL (3.4-5.0); Bilirubin Total 0.4 mg/dL (0.2-1.0); Potassium 3.5 mmol/L (3.5-5.1); Protein, Total 6.7 g/dL (6.4-8.2)
[2020-09-10 06:13] LABS: Absolute Lymphocytes (CBC) 1.2 K/uL (0.7-4.9); Hematocrit 32.2 % (36.0-45.0); Lymphocytes % 5.8 % (15.3-44.8); MPV 7.1 fL (7.6-11.3); RBC Red Blood Cell Count 3.31 M/uL (3.86-4.86)
[2020-09-10] MEDS ORDERED: MINERAL OIL 30 ML UCUP PO ONE ×2 (07:36→18:30)
[2020-09-10] MEDS: SULFASALAZINE 500 MG E.C. TAB PO SCH ×2 (08:00→20:03)
[2020-09-10 08:08] LABS: Blood Morphology Comment NOT SEEN (NOT SEEN); Platelet Estimate ADEQ
[2020-09-10] MEDS ORDERED: LACTULOSE 20 GM/30 ML UCUP ONE (08:08)
[2020-09-10] MEDS ORDERED: FOLIC ACID 1 MG TABLET ONE (08:09)
[2020-09-10] MEDS ORDERED: ACETAMINOPHEN 325 MG TABLET ONE (08:09)
[2020-09-10] MEDS ORDERED: CEFTRIAXONE/SWI 1gm 1 GM/10 ML SYR ONE ×2 (08:10→09:32)
[2020-09-10] MEDS: FOLIC ACID 1 MG TABLET PO SCH (08:24)
[2020-09-10] MEDS: ACETAMINOPHEN 325 MG TABLET PO SCH (08:24)
--- NOTE | 2020-09-10 08:53 | RAD REPORT ---
EXAM DESCRIPTION: RAD - Hip Bilateral With Pelvis - 09/10/2020 8:38 am CLINICAL HISTORY: Pain Pain and swelling COMPARISON: No comparisons FINDINGS: Ununited subcapital fracture of the right proximal femur is seen with varus angulation. Si gnificant bone reabsorption is suspected involving the residual femoral head as well as the femoral n shell which is largely absent. Marked fecal retention in the rectum seen.
[2020-09-10] MEDS: CEFTRIAXONE/SWI 1gm 1 GM/10 ML SYR IV SCH (09:00)
[2020-09-10] MEDS: LACTULOSE 20 GM/30 ML UCUP PO SCH ×2 (09:00→20:02)
[2020-09-10] MEDS: CRANBERRY FRUIT EXTRACT 200 MG CAP PO SCH (09:00)
[2020-09-10] MEDS: DOCUSATE NA 100 MG CAP PO SCH ×2 (09:00→20:03)
[2020-09-10] MEDS: DOCUSATE NA/SENNA CONC 1 TAB PO SCH (09:00)
[2020-09-10] MEDS: NA CHLORIDE 0.9% 1,000 ML IV SCH ×2 (13:08→23:21)
[2020-09-10] MEDS: METOPROLOL TARTRATE 5 MG/5 ML INJ IV STA ×2 (13:10→13:16)
[2020-09-10] MEDS ORDERED: METOPROLOL TARTRATE 5 MG/5 ML INJ IV ONE (13:31)
[2020-09-10] MEDS: TRAZODONE 50 MG TABLET PO SCH (20:03)
[2020-09-10] MEDS: QUETIAPINE 25 MG TAB PO SCH (20:03)
[2020-09-10] MEDS: ENSURE ENLIVE 237 ML CAN PO SCH (20:04)
[2020-09-10] MEDS: JUVEN PACKET PO SCH (20:04)
[2020-09-11] MEDS ORDERED: DIGOXIN 0.25 MG/ML AMP IV ONE (07:41)
[2020-09-11] MEDS: ACETAMINOPHEN 325 MG TABLET PO SCH ×2 (08:07→08:57)
[2020-09-11] MEDS: LACTULOSE 20 GM/30 ML UCUP PO SCH ×2 (08:07→20:33)
[2020-09-11] MEDS: FOLIC ACID 1 MG TABLET PO SCH ×2 (08:07→09:00)
[2020-09-11] MEDS: DOCUSATE NA 100 MG CAP PO SCH ×2 (08:07→20:34)
[2020-09-11] MEDS: CRANBERRY FRUIT EXTRACT 200 MG CAP PO SCH ×2 (08:08→09:00)
[2020-09-11] MEDS: DOCUSATE NA/SENNA CONC 1 TAB PO SCH (08:08)
[2020-09-11] MEDS: CEFTRIAXONE/SWI 1gm 1 GM/10 ML SYR IV SCH (08:08)
[2020-09-11] MEDS: SULFASALAZINE 500 MG E.C. TAB PO SCH ×2 (08:08→17:00)
[2020-09-11] MEDS: ENSURE ENLIVE 237 ML CAN PO SCH ×2 (08:09→21:00)
[2020-09-11] MEDS: JUVEN PACKET PO SCH ×2 (08:09→21:00)
[2020-09-11] MEDS: METOPROLOL TAR 50 MG TAB PO SCH ×2 (08:12→20:34)
[2020-09-11] MEDS ORDERED: METOPROLOL TARTRATE 5 MG/5 ML INJ IV ONE (08:58)
[2020-09-11] MEDS: D5 0.45 NS 1,000 ML IV SCH (10:43)
[2020-09-11] MEDS ORDERED: BISACODYL 10 MG RECTAL SUPP PR ONE (15:26)
[2020-09-11] MEDS ORDERED: MINERAL OIL 30 ML UCUP PO ONE (15:27)
--- NOTE | 2020-09-11 16:11 | EKG ---
Test Date: 2020-09-10 Test Time: 05:38:47 Immigration Case Manager: RV MEASUREMENT RESULTS: Intervals: Rate: 110 MS: 198 QRSD: 90 QT: 342 QTc: 462 [place]: P: 105 MS: 198 QRS: -47 T: 88 INTERPRETIVE STATEMENTS: Sinus tachycardia Left axis deviation Abnormal ECG Compared to ECG 09/09/2020 16:36:32 Sinus rhythm no longer present Atrial premature complex(es) no longer present ST (T wave) deviation no longer present Electronically Signed On 09-11-20 16:09:33 RFID STRATEGIST by Rafi Rodriguez
--- NOTE | 2020-09-11 16:14 | EKG ---
Test Date: 2020-09-09 Test Time: 16:36:32 Director Of Career Services: VÍCTOR MEASUREMENT RESULTS: Intervals: Rate: 89 VA: 180 QRSD: 92 QT: 354 QTc: 430 [place]: P: 86 VA: 180 QRS: -53 T: 77 INTERPRETIVE STATEMENTS: Sinus rhythm with premature atrial complexes Left axis deviation ST abnormality, possible digitalis effect Abnormal ECG Compared to ECG 02/13/2020 11:13:50 ST (T wave) deviation now present Incomplete right bundle-branch block no longer present Left ventricular hypertrophy no longer present Myocardial infarct finding no longer present Electronically Signed On 09-11-20 16:09:50 VIDEOGAME DESIGNER by Rafi Rodriguez
[2020-09-11] MEDS: QUETIAPINE 25 MG TAB PO SCH (20:33)
[2020-09-11] MEDS: TRAZODONE 50 MG TABLET PO SCH (20:34)
[2020-09-12] MEDS: D5 0.45 NS 1,000 ML IV SCH (05:31)
[2020-09-12] MEDS: METOPROLOL TAR 50 MG TAB PO SCH ×2 (05:39→17:53)
[2020-09-12] MEDS: CEFTRIAXONE/SWI 1gm 1 GM/10 ML SYR IV SCH (08:26)
[2020-09-12] MEDS: LACTULOSE 20 GM/30 ML UCUP PO SCH ×2 (08:26→22:51)
[2020-09-12] MEDS: SULFASALAZINE 500 MG E.C. TAB PO SCH ×2 (08:27→15:26)
[2020-09-12] MEDS: DOCUSATE NA/SENNA CONC 1 TAB PO SCH (08:28)
[2020-09-12] MEDS: FOLIC ACID 1 MG TABLET PO SCH (08:28)
[2020-09-12] MEDS: DOCUSATE NA 100 MG CAP PO SCH ×2 (08:28→22:52)
[2020-09-12] MEDS: CRANBERRY FRUIT EXTRACT 200 MG CAP PO SCH (08:28)
[2020-09-12] MEDS: ENSURE ENLIVE 237 ML CAN PO SCH ×2 (08:29→22:54)
[2020-09-12] MEDS: JUVEN PACKET PO SCH ×2 (08:30→21:00)
--- NOTE | 2020-09-12 08:47 | P.PN ---
Subjective Date of Service: 09/10/20 Subjective: No new changes Patient lethargic and significant fecal impaction. Review of Systems is unable to be obtained Physical Examination - Vital Signs Temperature: 97.1 F Blood Pressure: 120/55 Pulse: 79 Respirations: 12 Pulse Ox (%): 95 - Physical Exam General: Demented, Confused Respiratory: Clear to auscultation bilaterally, Normal air movement Cardiovascular: Regular rate/rhythm, Normal S1 S2 Gastrointestinal: Normal bowel sounds, Soft and benign, Non-distended Musculoskeletal: No clubbing, No swelling - Studies Microbiology Data (last 24 hrs): 09/09/20 18:15 Clean Catch Urine [place] Count - Final >100,000 CFU/ML. 09/09/20 18:15 Clean Catch Urine - Final Escherichia Coli Esbl 09/09/20 17:45 Blood - Blood Blood Culture Gram Stain - Final Assessment & Plan - Problems (Diagnosis) (1) Gram-negative bacteremia Current Visit: Yes Status: Acute (2) Fecal impaction Current Visit: Yes Status: Acute (3) Acute encephalopathy Current Visit: Yes Status: Acute (4) Dementia Current Visit: Yes Status: Acute Qualifiers: Dementia type: Alzheimer's disease (5) UTI (urinary tract infection) Current Visit: Yes Status: Acute - Plan Plan: 1. Continue with IV fluids 2. IV antibiotic therapy 3. Mineral old x1 4. Attempted disimpaction but patient does not have a hard stool 5. Continue sulfasalazine for rheumatoid arthritis 6. Patient with severe dementia and does not really interact; would benefit from hospice care 7. GI and DVT prophylaxis Discharge Plan: Home Plan to discharge in: Greater than 2 days - Advance Directives Does patient have a Living Will: Yes Does patient have a Durable POA for Healthcare: Yes - Code Status/Comfort Care Code Status Assessed: Yes Code Status: Full Code Critical Care: No Time Spent Managing PTS Care (In Minutes): 35
--- NOTE | 2020-09-12 08:52 | P.PN ---
Subjective Date of Service: 09/11/20 Patient had a few small bowel movements. Will give her a suppository and soapsuds enema as needed. Cultures pending at this time. Review of Systems is unable to be obtained Physical Examination - Vital Signs Temperature: 97.1 F Blood Pressure: 120/55 Pulse: 79 Respirations: 12 Pulse Ox (%): 95 - Physical Exam General: Demented Respiratory: Clear to auscultation bilaterally, Normal air movement Cardiovascular: Regular rate/rhythm, Normal S1 S2 Gastrointestinal: Normal bowel sounds, Soft and benign, Non-distended Musculoskeletal: No clubbing, No swelling Neurological: Abnormal gait - Studies Microbiology Data (last 24 hrs): 09/09/20 18:15 Clean Catch Urine [place] Count - Final >100,000 CFU/ML. 09/09/20 18:15 Clean Catch Urine - Final Escherichia Coli Esbl 09/09/20 17:45 Blood - Blood Blood Culture Gram Stain - Final Assessment & Plan - Problems (Diagnosis) (1) Gram-negative bacteremia Current Visit: Yes Status: Acute (2) Fecal impaction Current Visit: Yes Status: Acute (3) Acute encephalopathy Current Visit: Yes Status: Acute (4) Dementia Current Visit: Yes Status: Acute Qualifiers: Dementia type: Alzheimer's disease (5) UTI (urinary tract infection) Current Visit: Yes Status: Acute - Plan Plan: Continue with plan of care as mentioned below 1. Continue with IV fluids 2. IV antibiotic therapy; awaiting ID and sensitivity 3. Dulcolax suppository and if no p.m. then will give a soapsuds enema 4. Attempted disimpaction but patient does not have a hard stool 5. Continue sulfasalazine for rheumatoid arthritis 6. Patient with severe dementia and does not really interact; would benefit from hospice care 7. GI and DVT prophylaxis Discharge Plan: [facility] Plan to discharge in: Greater than 2 days - Advance Directives Does patient have a Living Will: Yes Does patient have a Durable POA for Healthcare: Yes - Code Status/Comfort Care Code Status: Full Code Critical Care: No Time Spent Managing PTS Care (In Minutes): 35
[2020-09-12] MEDS ORDERED: DRISDOL (VITAMIN D=ERGOCALCIFEROL) 50000 UNIT CAP PO SCH (09:00)
[2020-09-12] MEDS ORDERED: Meropenem 500 MG VIAL IV SCH (10:00)
[2020-09-12 11:29] LABS: Absolute Lymphocytes (CBC) 1.2 K/uL (0.7-4.9); Basophils % 0.1 % (0-1.3); Hematocrit 27.9 % (36.0-45.0); Lymphocytes % 6.8 % (15.3-44.8); RBC Red Blood Cell Count 2.87 M/uL (3.86-4.86)
[2020-09-12] MEDS: Meropenem 500 MG/100 ML BAG IV SCH ×2 (12:20→22:56)
[2020-09-12 13:26] LABS: Magnesium 3.1 mg/dL (1.8-2.4); Phosphorus 1.3 mg/dL (2.5-4.9)
[2020-09-12 13:30] LABS: Potassium 2.8 mmol/L (3.5-5.1)
[2020-09-12 14:25] LABS: Urine Appearance CLEAR; Urine Bilirubin NEGATIVE (NEG); Urine Blood NEGATIVE (NEG); Urine Color DK YELLOW; Urine Glucose NEGATIVE (NEG); Urine Protein 1+ (NEG); Urine Specific Gravity 1.015 (1.005-1.030); Urine Urobilinogen 0.2 mg/dL (0.2-1.0); Urine pH 5.5 (5.0-7.0)
[2020-09-12] MEDS ORDERED: POTASSIUM PHOS 30 MM in NA CHLORIDE 0.9% 500 ML IV ONE (15:00)
[2020-09-12] MEDS: D5W 1,000 ML IV SCH (15:25)
[2020-09-12 15:54] LABS: Urine Bacteria 20-50 /HPF (<20); Urine RBC <5 /HPF (NONE SEEN)
[2020-09-12 15:55] LABS: Urine Amorphous Sediment 1+ /HPF (NONE SEEN)
[2020-09-12] MEDS: METHYLPREDNISOLONE 40 MG INJ IV SCH (17:53)
--- NOTE | 2020-09-12 21:32 | CON ---
Date of Consultation: 09/10/2020 Reason For Consultation: Right hip fracture. History Of Present Illness: Ms. Kumar is an 80-year-old female, who presented to the ER yesterday wi th altered mental status. She has a past medical history of dementia, hypertension, and hyperlipidem ia, who is presenting with altered mental status. Her mentation is different than her baseline. Whi le in the ER, she was noted to have a UTI as well as dehydration. The patient also underwent a CAT s can, which demonstrated a nonunited right femoral neck fracture, which appeared subacute in nature. The patient is nonambulatory on examination. The patient is unable to communicate during the exam an d does not follow commands. Review of Systems: As above, otherwise negative. Past Medical History: Includes hypertension, rheumatoid arthritis, dementia. Past Surgical History: Includes appendectomy, hysterectomy, tonsillectomy. Medications: Folic acid, sulfasalazine, Lasix, lactulose, morphine, Seroquel, Aldactone, trazodone. Allergies: TAPE AND LATEX. Social History: Denies tobacco use. Denies alcohol use. Family History: Reviewed and noncontributory. Physical Examination: General: No apparent distress. HEENT: Normocephalic, atraumatic. Neck: Supple. Cardiovascular: Brisk cap refill to all digits. Chest: Nonlabored breathing. Abdomen: Nondistended. Psychiatric: Does not follow commands. Musculoskeletal: The patient holding both hips in a flexed position as well as her knees. The patie nt does not respond with any range of motion of the right hip. No erythema or swelling noted over th e right or left hips. Moves toes grossly. Laboratory Data: X-rays and diagnostic studies of the right hip demonstrate a subacute right femoral neck fracture with some resorption of the femoral head consistent with a more subacute to chronic fe moral neck fracture. Significant osteoporosis noted. Assessment And Plan: Haylee is an 80-year-old female with right subacute displaced femoral neck fract ure. The patient is nonambulatory. The fracture does appear chronic in nature that is given her VTS status as well as recent COVID status. The patient is a very high risk candidate and I do not feel surgical intervention is indicated at this time. I discussed with the patient's daughter the chronic ity of the fracture and high-risk with any kind of surgery and recommended nonoperative treatment. S he expressed understanding. The patient may be mobilized using wheelchair as necessary and will be n onweightbearing on the right lower extremity. CV/MODL Voice ID: [id number] Report ID: [id number]
[2020-09-13] MEDS: METHYLPREDNISOLONE 40 MG INJ IV SCH ×2 (00:06→05:26)
[2020-09-13] MEDS: Meropenem 500 MG/100 ML BAG IV SCH ×3 (05:18→22:51)
[2020-09-13] MEDS: METOPROLOL TAR 50 MG TAB PO SCH ×2 (05:26→17:43)
[2020-09-13 06:29] LABS: Hematocrit 24.5 % (36.0-45.0); RBC Red Blood Cell Count 2.54 M/uL (3.86-4.86)
[2020-09-13 06:30] LABS: Absolute Lymphocytes (CBC) 0.6 K/uL (0.7-4.9); MPV 7.1 fL (7.6-11.3)
[2020-09-13 07:14] LABS: Phosphorus 3.5 mg/dL (2.5-4.9); Potassium 3.1 mmol/L (3.5-5.1)
--- NOTE | 2020-09-13 07:54 | P.PN ---
Subjective Date of Service: 09/12/20 Patient remains fairly lethargic. I am going to Dc her trazodone and her Seroquel. Repeat her labs today. Spoke to the daughter and she stated that patient is a do not resuscitate and has been on hospice on 2 different occasions. Since the hospice company could not get into the retirement it was lifted. She would like for her mother to be as comfortable as possible. She does want her to get a IV antibiotic therapy for her urinary tract infection. Will get a PICC line placed per her request. Will see how her mentation does after we Dc her trazodone and her Seroquel. Review of Systems is unable to be obtained Physical Examination - Vital Signs Temperature: 96.4 F Blood Pressure: 104/69 Pulse: 68 Respirations: 16 Pulse Ox (%): 91 - Physical Exam General: Demented, Confused Respiratory: Clear to auscultation bilaterally, Normal air movement Cardiovascular: Regular rate/rhythm, Normal S1 S2 Gastrointestinal: Normal bowel sounds, Soft and benign, Non-distended, No rebound, No guarding Musculoskeletal: No clubbing, No swelling Neurological: Abnormal gait, Abnormal speech, Abnormal strength - Studies Microbiology Data (last 24 hrs): 09/09/20 18:15 Clean Catch Urine [place] Count - Final >100,000 CFU/ML. 09/09/20 18:15 Clean Catch Urine - Final Escherichia Coli Esbl 09/09/20 17:45 Blood - Blood Blood Culture Gram Stain - Final Assessment & Plan - Problems (Diagnosis) (1) Gram-negative bacteremia Current Visit: Yes Status: Acute (2) Fecal impaction Current Visit: Yes Status: Acute (3) Acute encephalopathy Current Visit: Yes Status: Acute (4) Dementia Current Visit: Yes Status: Acute Qualifiers: Dementia type: Alzheimer's disease (5) UTI (urinary tract infection) Current Visit: Yes Status: Acute (6) Hypernatremia Current Visit: Yes Status: Acute (7) Medication adverse effect Current Visit: Yes Status: Acute - Plan Plan: Continue with plan of care as mentioned below 1. Continue with IV fluids; change to D5 water 2. IV antibiotic therapy; continued therpy for ESBL E coli 3. Stool softener to continue; check KUB 4. Dc trazodone and Seroquel 5. Continue sulfasalazine for rheumatoid arthritis 6. GI and DVT prophylaxis Discharge Plan: Intermediate Plan to discharge in: 48 Hours - Advance Directives Does patient have a Living Will: Yes Does patient have a Durable POA for Healthcare: Yes - Code Status/Comfort Care Code Status: Full Code Critical Care: No Time Spent Managing PTS Care (In Minutes): 30
[2020-09-13] MEDS ORDERED: D5W 500 ML IV SCH (08:00)
[2020-09-13] MEDS: CRANBERRY FRUIT EXTRACT 200 MG CAP PO SCH (08:35)
[2020-09-13] MEDS: SULFASALAZINE 500 MG E.C. TAB PO SCH ×2 (08:35→17:00)
[2020-09-13] MEDS: FOLIC ACID 1 MG TABLET PO SCH (08:35)
[2020-09-13] MEDS: JUVEN PACKET PO SCH ×2 (08:36→21:00)
[2020-09-13] MEDS: ENSURE ENLIVE 237 ML CAN PO SCH ×2 (08:36→22:34)
[2020-09-13] MEDS: DOCUSATE NA/SENNA CONC 1 TAB PO SCH (08:37)
[2020-09-13] MEDS: predniSONE 20 MG TAB PO SCH ×2 (08:53→22:31)
--- NOTE | 2020-09-13 13:01 | RAD REPORT ---
EXAM DESCRIPTION: RAD - Abdomen 1 View (KUB) - 09/13/2020 9:07 am CLINICAL HISTORY: abd pain Pain COMPARISON: ABDOMEN 1 VIEW KUB dated 05/29/2008; ABDOMEN 1 VIEW KUB dated 03/20/2008; Hip Bilateral Wi th Pelvis dated 09/10/2020 FINDINGS: The bowel gas pattern is non-obstructive. No evidence of free air or pneumatosis. Severe f ecal retention is seen. Chronic proximal right hip fracture. IMPRESSION: Severe fecal retention.
[2020-09-13] MEDS: D5W 1,000 ML IV SCH ×3 (14:24→20:00)
[2020-09-13] MEDS: ACETAMINOPHEN 500 MG TAB PO PRN (18:15)
[2020-09-13 19:12] LABS: Potassium 2.8 mmol/L (3.5-5.1)
[2020-09-13] MEDS: DOCUSATE NA 100 MG CAP PO SCH (22:31)
[2020-09-13] MEDS: KCL 20 MEQ/100 mL IVPB 20 MEQ/100 ML BAG IV SCH (22:39)
[2020-09-13] MEDS ORDERED: D5 0.45 NS 1,000 ML IV SCH (23:00)
--- NOTE | 2020-09-13 23:47 | CON ---
Date of Consultation: 09/13/2020 Chief Complaint: Hypernatremia, dehydration, volume depletion. History Of Present Illness: The patient is an 80-year-old woman with past medical history of dementia, hypertension, hyperlipidemia. She came to the hospital because of worsening of the mental status changes. She has underlying dementia, although she became progressively confused and lethargic. She denies fever or chills. In the emergency room, she was evaluated and was found to have urinary tract infection. She was admitted to the hospital for acute encephalopathy due to acute urinary tract infection complicated by volume depletion. The patient has history of congestive heart failure. She was taking furosemide and spironolactone for congestive heart failure. Review of Systems: The patient cannot provide review of systems. She remains lethargic. Past Medical History: Obtained from the chart. Hypertension and rheumatoid arthritis. Past Surgical History: Appendectomy, hysterectomy, tonsillectomy. Family History: Father with heart disease. Brother with heart disease. Social History: Never smoked. Alcohol denies. Drugs denies. Physical Examination: General: The patient is alert, somewhat lethargic, confused. Eyes: Anicteric sclerae. EOMI. Neck: Supple. No bruits. Lungs: Clear to auscultation bilaterally. Heart: S1, S2. No pericardial friction rub. Abdomen: Soft, benign. NO rebound Extremities: No clubbing. No swelling. No cyanosis. Skin: Warm and dry. No skin rashes. Neurologic: no tremor CN intact Laboratory Data: Sodium 160, potassium 2.8, chloride 129, CO2 27, BUN 89, creatinine 1.3, calcium 7.8, phosphorus 1.3, and magnesium 3.1. Impression And Plan: 1. Acute on chronic kidney injury. Creatinine level was up to 2.09 and BUN was over 100. On arrival to the hospital, BUN was 137. The patient was started on IV fluids. She has decreased p.o. intake and developed hypernatremia. On arrival to the hospital, sodium level was 140. Subsequently today, she was found to have hypernatremia with sodium of 163. She is started on D5W and sodium level has improved. There is ongoing hypokalemia. The patient will require potassium replacement. The patient may benefit from spironolactone at this point. Acute renal function is improving. The patient developed acute tubular necrosis, nonoliguric acute tubular necrosis, and she is responding to IV hydration. Electrolytes abnormalities are due to decreased p.o. intake and decreased water intake by mouth. Subsequently, the patient was started on D5W and sodium level is improving. 2. Acute kidney injury due to renal hypoperfusion. Monitor blood pressure and start midodrine for blood pressure support. Blood pressure medication currently on hold. The patient has history of congestive heart failure. Lasix and spironolactone are on hold. 3. Hypokalemia, hypophosphatemia. Recommend to check protein intake and calorie count. The patient was found to have hypoalbuminemia, which may be contributory to current status with peripheral edema. Urinalysis did not show active urinary sediment. There is 1+ protein and plan is to re-evaluate urine protein-creatinine ratio to quantify proteinuria. EB/MODL Voice ID: [id number] Report ID: [id number] JUAN MIGUEL
--- NOTE | 2020-09-14 00:08 | CON ---
Date of Consultation: 09/13/2020 duplicate RADHA/BRISA Voice ID: [id number] Report ID: [id number] MTDYolanda
[2020-09-14] MEDS: KCL 20 MEQ/100 mL IVPB 20 MEQ/100 ML BAG IV SCH ×2 (00:40→03:10)
[2020-09-14] MEDS ORDERED: MINERAL OIL 30 ML UCUP PO ONE (03:48)
--- NOTE | 2020-09-14 03:49 | P.PN ---
Subjective Date of Service: 09/13/20 Patient is finally much more awake and alert. We held patient's trazodone and Seroquel over the last 48 hours. Clinically she appears to be doing much better. Nurse's aide states she is eating better as well. Continue with IV antibiotics for ESBL. Arrange for PICC line placement. KUB revealed fecal r etention is persistent. Patient has had multiple bowel movements during her hospital stay this time. We will continue with laxative and may need to give soapsuds enema to help clear her out. Patient is an 80-year-old female who was diagnosed with dementia and has been declining. Patient had been on hospice care but this was discontinued as they were not able to go into the care home. The family states that she was on hospice a year ago and at that time they discontinued it after 6 months. However, patient has continued to decline over the last few months. She has had abdominal pain issues for the last few months. She has some fecal retention. She has lost a lot of weight. She appears cachectic. Her nutritional status has been poor throughout her hospitalization. We have discontinued the trazodone and Seroquel. This has helped with her mentation. Patient had fecal impaction and was given mineral will x2 and has had multiple bowel movements. Patient may need enema. Long-term prognosis is poor. Review of Systems is unable to be obtained Physical Examination - Vital Signs Temperature: 98.4 F Blood Pressure: 111/67 Pulse: 102 Respirations: 20 Pulse Ox (%): 95 - Physical Exam General: Alert, Demented Respiratory: Clear to auscultation bilaterally, Normal air movement Cardiovascular: Regular rate/rhythm, Normal S1 S2 Gastrointestinal: Normal bowel sounds, Tenderness Musculoskeletal: No clubbing, No swelling Neurological: Abnormal gait, Abnormal strength Assessment & Plan - Problems (Diagnosis) (1) Gram-negative bacteremia Current Visit: Yes Status: Acute (2) Fecal impaction Current Visit: Yes Status: Acute (3) Acute encephalopathy Current Visit: Yes Status: Acute (4) Dementia Current Visit: Yes Status: Acute Qualifiers: Dementia type: Alzheimer's disease (5) UTI (urinary tract infection) Current Visit: Yes Status: Acute (6) Hypernatremia Current Visit: Yes Status: Acute (7) Medication adverse effect Current Visit: Yes Status: Acute (8) ESBL (extended spectrum beta-lactamase) producing bacteria infection Current Visit: Yes Status: Acute - Plan Plan: Continue with plan of care as mentioned below 1. Continue with IV fluids; changed to D5 water; Nephrology consulted 2. IV antibiotic therapy; continue rx for ESBL E coli 3. Stool softener 4. Dc trazodone and Seroquel 5. Continue sulfasalazine for rheumatoid arthritis 6. Patient with severe dementia and does not really interact; has been on hospice care. Would Dc trazodone and Seroquel and reassess mentation 7. GI and DVT prophylaxis Discharge Plan: [facility] Plan to discharge in: Greater than 2 days - Advance Directives Does patient have a Living Will: Yes Does patient have a Durable POA for Healthcare: Yes - Code Status/Comfort Care Code Status: Do Not Attempt Resuscitat Critical Care: No Time Spent Managing PTS Care (In Minutes): 25
[2020-09-14 04:37] LABS: Potassium 3.7 mmol/L (3.5-5.1)
[2020-09-14] MEDS: Meropenem 500 MG/100 ML BAG IV SCH ×3 (05:24→20:25)
[2020-09-14] MEDS: METOPROLOL TAR 50 MG TAB PO SCH (06:00)
[2020-09-14] MEDS: JUVEN PACKET PO SCH ×2 (09:00→21:00)
[2020-09-14] MEDS: THIAMINE HCL 100 MG TABLET PO SCH (09:00)
[2020-09-14] MEDS: ENSURE ENLIVE 237 ML CAN PO SCH ×2 (09:00→21:00)
[2020-09-14] MEDS: POTASSIUM CL SA 10 MEQ TAB PO SCH ×3 (09:05→22:31)
[2020-09-14] MEDS: CRANBERRY FRUIT EXTRACT 200 MG CAP PO SCH (09:05)
[2020-09-14] MEDS: DOCUSATE NA/SENNA CONC 1 TAB PO SCH (09:06)
[2020-09-14] MEDS: SULFASALAZINE 500 MG E.C. TAB PO SCH ×2 (09:06→18:39)
[2020-09-14] MEDS: predniSONE 20 MG TAB PO SCH (09:06)
[2020-09-14] MEDS: FOLIC ACID 1 MG TABLET PO SCH (09:06)
[2020-09-14] MEDS: MINERAL OIL 30 ML UCUP PO SCH (09:06)
[2020-09-14] MEDS: D5W 1,000 ML IV SCH ×2 (10:00→20:21)
--- NOTE | 2020-09-14 15:35 | P.PN ---
Subjective Date of Service: 09/14/20 Chief Complaint: AMS Subjective: Improving, Demented Physical Examination - Vital Signs Temperature: 98.3 F Blood Pressure: 98/53 Pulse: 100 Respirations: 16 Pulse Ox (%): 95 - Physical Exam General: Alert, Demented HEENT: Atraumatic Neck: Supple Respiratory: Clear to auscultation bilaterally, Normal air movement Cardiovascular: Normal pulses, Regular rate/rhythm Neurological: Normal speech, Normal strength at 5/5 x4 extr, Normal tone, Dementia - Studies Microbiology Data (last 24 hrs): 09/09/20 17:45 Blood - Blood Aerobic Blood Culture - Final Escherichia Coli Esbl 09/09/20 17:45 Blood - Blood Blood Culture Gram Stain - Final Medications List Reviewed: Yes Assessment & Plan Discharge Plan: Intermediate Plan to discharge in: 24 Hours Physician Review Additional Text: Assessment & Plan - Problems (Diagnosis) (1) Gram-negative bacteremia Current Visit: Yes Status: Acute (2) Fecal impaction Current Visit: Yes Status: Acute (3) Acute encephalopathy Current Visit: Yes Status: Acute (4) Dementia Current Visit: Yes Status: Acute Qualifiers: Dementia type: Alzheimer's disease (5) UTI (urinary tract infection) Current Visit: Yes Status: Acute (6) Hypernatremia Current Visit: Yes Status: Acute (7) Medication adverse effect Current Visit: Yes Status: Acute (8) ESBL (extended spectrum beta-lactamase) producing bacteria infection Current Visit: Yes Status: Acute - Plan Plan: Continue with plan of care as mentioned below 1. Continue with IV fluids; changed to D5 water; Will discuss with Nephrology 2. IV antibiotic therapy; continue rx-Merrem for ESBL E coli. Will need PICC line and 14 day of treatment 3. Stool softener 4. Dc trazodone and Seroquel 5. Continue sulfasalazine for rheumatoid arthritis 6. Patient with severe dementia and does not really interact; has been on hospice care. Would Dc trazodone and Seroquel and reassess mentation. Spoke to Daughter. She would like Hospice in the future. Will check to see if this is possible. Will discuss with Social service. 30 minutes of Advanced care planning. 7. GI and DVT prophylaxis Time Spent Managing Pts Care (In Minutes): 55
--- NOTE | 2020-09-14 17:19 | RAD REPORT ---
EXAM DESCRIPTION: RAD - Abdomen 1 View (KUB) - 09/14/2020 5:10 pm CLINICAL HISTORY: Abdomen pain. FINDINGS: The amount of stool within the colon has diminished since September 13, 2019 A U shaped dilated loop of bowel is present within the central pelvis and lower abdomen probably sigm oid colon. It has decreased somewhat in caliber since the prior exam. A volvulus can have this appear ance but it probably is not that since it has diminished in caliber. This should be correlated clinic ally. Followup abdominal plain film series recommended
[2020-09-14] MEDS: METOPROLOL TAR 25 MG TAB PO SCH (18:39)
[2020-09-14] MEDS: DOCUSATE NA 100 MG CAP PO SCH ×2 (21:00→22:31)
--- NOTE | 2020-09-14 21:24 | PN ---
Date of Progress Note: 09/13/2020 Chief Complaint: Dehydration and hypernatremia. History Of Present Illness: The patient is an 80-year-old woman with past medical history of dementi a, hypertension, hyperlipidemia. She came to emergency room because of altered mental status. She w as lethargic and confused. The patient has history of dementia. She is admitted to the hospital for COVID infection. She was found to have urinary tract infection and is on antibiotics. The patient developed hypernatremia and was started on dextrose infusion. Sodium level has improved. Subsequent ly, fluids were changed to half-normal saline. Today, sodium level stabilized at 155, potassium impr chikis from 2.8 to 3.7, hyperchloremia is improving from 131 to 124 over the last 48 hours. There is ongoing prerenal azotemia, acute kidney injury, BUN primarily was up to 115, creatinine 1.62 . Today, BUN is 74 and creatinine 0.94. Review of Systems: Unobtainable. Laboratory Data: Sodium 155, potassium 3.7, chloride 134, CO2 25, BUN 74, creatinine 0.94, calcium 8 .0. Impression And Plan: 1.Acute on chronic kidney injury, prerenal azotemia, dehydration, hypernatremia. The patient is on IV fluids. Continue IV fluids for volume resuscitation. The patient currently is on D5W to control hypernatremia. 2.Hypokalemia. Replacement was done. Continue to monitor potassium level and check magnesium level . 3.Hypophosphatemia. Recommend to check protein intake and calorie count. The patient may need tube feeding or TPN. Urinalysis did not show urinary abnormal sediment, there is 1+ protein. Plan is to re-evaluate urine protein-creatinine ratio to quantify proteinuria. EB/MODL Voice ID: [id number] Report ID: [id number]
[2020-09-14] MEDS: predniSONE 10 MG TAB PO SCH (22:32)
[2020-09-15 04:04] LABS: Absolute Lymphocytes (CBC) 0.8 K/uL (0.7-4.9); Hematocrit 24.7 % (36.0-45.0); Lymphocytes % 10.1 % (15.3-44.8); MPV 7.2 fL (7.6-11.3); RBC Red Blood Cell Count 2.54 M/uL (3.86-4.86)
[2020-09-15 04:22] LABS: C-Reactive Protein 79.8 mg/L (<3.00); Ferritin 235.6 ng/mL (8-388); Potassium 3.2 mmol/L (3.5-5.1)
[2020-09-15] MEDS: Meropenem 500 MG/100 ML BAG IV SCH ×3 (05:01→19:52)
[2020-09-15] MEDS: METOPROLOL TAR 25 MG TAB PO SCH ×2 (06:00→17:14)
[2020-09-15] MEDS: MINERAL OIL 30 ML UCUP PO SCH (07:30)
[2020-09-15] MEDS: DOCUSATE NA 100 MG CAP PO SCH ×2 (07:30→21:00)
[2020-09-15] MEDS: DOCUSATE NA/SENNA CONC 1 TAB PO SCH (07:31)
[2020-09-15 07:43] VITALS: BMI 21.2
[2020-09-15] MEDS: SULFASALAZINE 500 MG E.C. TAB PO SCH ×2 (08:00→17:16)
[2020-09-15] MEDS: POTASSIUM CL SA 10 MEQ TAB PO SCH ×3 (08:32→21:00)
[2020-09-15] MEDS: CRANBERRY FRUIT EXTRACT 200 MG CAP PO SCH (08:32)
[2020-09-15] MEDS: FOLIC ACID 1 MG TABLET PO SCH (08:33)
[2020-09-15] MEDS: predniSONE 10 MG TAB PO SCH ×2 (08:33→19:51)
[2020-09-15] MEDS: THIAMINE HCL 100 MG TABLET PO SCH (08:33)
[2020-09-15] MEDS: JUVEN PACKET PO SCH ×2 (08:34→21:00)
[2020-09-15] MEDS: ENSURE ENLIVE 237 ML CAN PO SCH ×2 (08:34→21:00)
[2020-09-15] MEDS: D5W 1,000 ML IV SCH (08:37)
[2020-09-15] MEDS: D5W 1,000 ML with POTASSIUM CL 40 MEQ IV SCH ×4 (11:51→20:32)
--- NOTE | 2020-09-15 12:31 | P.PN ---
Subjective Date of Service: 09/15/20 Chief Complaint: AMS Subjective: Other (Patient stable. No complaints noted.) Physical Examination - Vital Signs Temperature: 97.7 F Blood Pressure: 110/59 Pulse: 85 Respirations: 18 Pulse Ox (%): 96 - Physical Exam General: Alert, Demented HEENT: Other (Mucous membranes dry) Neck: Supple Respiratory: Other (Stable. No requirement for oxygen.) Cardiovascular: Regular rate/rhythm - Studies Microbiology Data (last 24 hrs): 09/09/20 17:45 Blood - Blood Aerobic Blood Culture - Final Escherichia Coli Esbl 09/09/20 17:45 Blood - Blood Blood Culture Gram Stain - Final 09/09/20 17:45 Blood - Blood Anaerobic Blood Culture - Final No growth in 5 days. 09/09/20 17:06 Blood - Blood Aerobic Blood Culture - Final No growth in 5 days. 09/09/20 17:06 Blood - Blood Anaerobic Blood Culture - Final No growth in 5 days. Medications List Reviewed: Yes Assessment & Plan Discharge Plan: [facility] Plan to discharge in: 48 Hours Physician Review Additional Text: Impression: Toxic encephalopathy related to UTI with bacteremia, urine/blood culture positive for E coli-ESBL Chronic constipation Hypernatremia likely due to poor oral intake and acute renal failure COVID 19 positive Chronic Atrial fibrillation not on chronic anti coagulation therapy Anemia of chronic disease Moderate protein malnutrition Plan: Toxic encephalopathy related to UTI with bacteremia, urine/blood culture positive for E coli-ESBL: Awaiting to get PICC line in place. Continue meropenem. Patient will need a total of 14 days. Patient still requires 9 more days of antibiotic therapy. Case discussed with daughter yesterday. Will plan to return to the [place] [facility] at discharge with IV antibiotic therapy. Daughter desires hospice after treatment. Will discuss again with daughter. Advance care planning-30 min. Chronic constipation: Continue medication. Less stool noted on KUB. Hypernatremia likely due to poor oral intake and acute renal failure: Continue monitor calorie count. Nephrology has adjusted IV fluids. Will give fluid boluses well. Chronic Atrial fibrillation not on chronic anti coagulation therapy: Continue metoprolol. Parameters in place if blood pressure low. Anemia of chronic disease: Will monitor this closely. Patient may require transfusion if needed. COVID 19: Patient appears stable. No respiratory complaints noted. Patient on room-air. Continue steroid. Will adjust accordingly. Moderate protein malnutrition: Continue to monitor calorie count. Encourage intake. Time Spent Managing Pts Care (In Minutes): 55
[2020-09-15] MEDS ORDERED: NA CHLORIDE 0.9% 250 ML IV ONE (12:33)
[2020-09-15] MEDS ORDERED: NA CHLORIDE 0.9% 250 ML IV SCH (13:00)
--- NOTE | 2020-09-15 14:59 | PN ---
Date of Progress Note: 09/15/2020 Subjective: The patient was admitted with acute kidney injury, hypernatremia, and UTI. The patient had episode of intermittent AFib and low blood pressure today. Physical Examination: Vital Signs: Blood pressure down to 88/56, pulse of 89, afebrile. The patient had good urine output. The patient has been sleepy. Had urine output of 1400. Chest: Clear to auscultation. Heart: S1, S2. Systolic murmur. Abdomen: Soft, nontender. Extremities: Trace edema. Neuro: The patient is sleepy, moving all extremities. No focality. Laboratory Data: WBC 8, H and H 7.8/24.7, platelet of 375. Sodium 157, potassium 3.2, bicarb 29, chloride 126, BUN 54, creatinine 0.8, calcium of 8.1. Ferritin 235, C-reactive protein 79. Current Medications: The patient on include; 1. Meropenem 500 t.i.d. 2. Sulfasalazine. 3. Metoprolol. 4. Zofran. 5. Docusate. 6. Vitamin d 7. IV fluid D5 with 40 of KCl at 50 per hour. 8. Thiamine. Assessment And Plan: 1. Acute kidney injury secondary to prerenal, recovered, resolved. 2. Hypertension, currently hypotension. I am going to go ahead and bolus the patient with normal saline 500. I agree with decreasing the beta-christian. 3. Hypernatremia. Increase D5 to 100 per hour. 4. Hypokalemia. We will supplement. 5. Hypophosphatemia, resolved. We will follow up level tomorrow. 6. Altered mental status secondary to encephalopathy secondary to urinary tract infection. We will follow up with primary. 7. Urinary tract infection secondary to Escherichia coli ESBL. Continue meropenem. 8. Bacteremia secondary to urosepsis as above. Continue meropenem. time spend exam the patient face to face , place order , discussed the case with other truck driver teamster hospitalist and other field technical support consultant 45 min. TI Voice ID: [id number] Report ID: [id number] JUAN MIGUEL
[2020-09-15 15:26] LABS: Hematocrit 26.2 % (36.0-45.0)
[2020-09-15] MEDS: ACETAMINOPHEN 500 MG TAB PO PRN (20:03)
[2020-09-15] MEDS: ONDANSETRON 4 MG/2 ML VIAL IV PRN ×2 (20:03→22:28)
[2020-09-16] MEDS: Meropenem 500 MG/100 ML BAG IV SCH ×3 (03:43→20:00)
[2020-09-16] MEDS: METOPROLOL TAR 25 MG TAB PO SCH ×2 (05:01→18:00)
[2020-09-16 05:23] LABS: Albumin 1.5 g/dL (3.4-5.0); Phosphorus 1.2 mg/dL (2.5-4.9); Potassium 4.2 mmol/L (3.5-5.1)
--- NOTE | 2020-09-16 07:58 | P.PN ---
Subjective Date of Service: 09/16/20 Chief Complaint: AMS Subjective: Other (Patient appears improved. nurses report patient has had several bowel movements. Nurses report good oral intake with somebody present.) Physical Examination - Vital Signs Temperature: 97.2 F Blood Pressure: 106/52 Pulse: 62 Respirations: 16 Pulse Ox (%): 97 - Physical Exam General: Alert, Cooperative, Demented HEENT: Atraumatic Neck: Supple Respiratory: Other (Patient on room air. No distress noted) Cardiovascular: Regular rate/rhythm Neurological: Normal speech, Normal strength at 5/5 x4 extr, Normal tone, Dementia - Studies Medications List Reviewed: Yes Assessment & Plan Discharge Plan: Halfway Plan to discharge in: 24 Hours Physician Review Additional Text: Impression: Toxic encephalopathy related to UTI with bacteremia, urine/blood culture positive for E coli-ESBL Chronic constipation Hypernatremia likely due to poor oral intake and acute renal failure COVID 19 positive Chronic Atrial fibrillation not on chronic anti coagulation therapy Anemia of chronic disease Moderate protein malnutrition Plan: Toxic encephalopathy related to UTI with bacteremia, urine/blood culture posit elin for E coli-ESBL: Still waiting on PICC line to be placed. Continue IV meropenem. Patient will need a total of 14 days. Patient still requires 8 more days of antibiotic therapy. Once PICC line in place [facility]. Case discussed with daughter yesterday. Will continue to discuss with daughter. Daughter hopes to get her back on hospice after treatment. Chronic constipation: This has resolved. Patient with multiple bowel movements. Hold docusate. KUB shows improvement. Hypernatremia likely due to poor oral intake and acute renal failure: Continue monitor calorie count. Nephrology continues to adjust IV fluids. Chronic Atrial fibrillation not on chronic anti coagulation therapy: Continue metoprolol. Parameters in place if blood pressure low. Anemia of chronic disease: Will monitor this closely. Patient may require transfusion if needed. Patient may require iron supplementation COVID 19: Patient appears stable. No respiratory complaints noted. Patient on room-air. Continue steroid. Will adjust accordingly. Moderate protein malnutrition: Continue to monitor calorie count. Encourage intake. Time Spent Managing Pts Care (In Minutes): 55
[2020-09-16] MEDS: ENSURE ENLIVE 237 ML CAN PO SCH ×2 (09:00→20:42)
[2020-09-16] MEDS: JUVEN PACKET PO SCH ×2 (09:00→20:42)
[2020-09-16] MEDS: DOCUSATE NA/SENNA CONC 1 TAB PO SCH (09:00)
[2020-09-16] MEDS: D5W 1,000 ML IV SCH ×3 (11:00→21:00)
[2020-09-16] MEDS ORDERED: SOD FERRIC GLUC COMPLX/SUCROSE 250 MG in NA CHLORIDE 0.9% 250 ML IV SCH (11:00)
[2020-09-16] MEDS ORDERED: SODIUM PHOSPHATE 30 MM in NA CHLORIDE 0.9% 500 ML IV ONE (11:00)
[2020-09-16] MEDS: CRANBERRY FRUIT EXTRACT 200 MG CAP PO SCH (11:16)
[2020-09-16] MEDS: SULFASALAZINE 500 MG E.C. TAB PO SCH ×2 (11:16→18:31)
[2020-09-16] MEDS: predniSONE 10 MG TAB PO SCH ×2 (11:16→20:40)
[2020-09-16] MEDS: THIAMINE HCL 100 MG TABLET PO SCH (11:16)
[2020-09-16] MEDS: FOLIC ACID 1 MG TABLET PO SCH (11:22)
--- NOTE | 2020-09-16 13:09 | CON ---
History Of Present Illness: I was consulted for urinary tract infection with bacteremia positive for E coli ESBL. The patient also was COVID-19 positive. Has significant past medical history of anemi a, moderate protein-calorie malnourishment, chronic atrial fibrillation. Not a good historian. Most of the history was obtained through medical records and staff. The patient initially was brought in for altered mental status and was found to have urinary tract infection. Past Medical History: As per HPI. Social History: Nonsmoker, nondrinker. Family History: Noncontributory. Medications: Meropenem. See MAR for other medications. Allergies: LATEX. Review of Systems: Unable to obtain. Physical Examination: General: This is an 80-year-old female, lying in bed, not in any acute cardiopulmonary distress. Vital signs: Temperature 97.5, pulse 84, respirations 17, blood pressure 98/43. HEENT: Unremarkable. Neck: Supple. Lungs: Clear to auscultation. Bowel sounds present. Extremities: Trace edema. Laboratory Data: WBC 8, down from 20,000; hemoglobin 7.8. Platelets are 375. Chemistry shows sodiu m 151, potassium 4.2, chloride 123, BUN 27, creatinine 0.7. Glucose is 117. Albumin is 1.5. Micro data showing E coli ESBL in blood and in urine on cultures done on 09/09. The patient is on meropene m. Assessment And Plan: Bacteremia and urinary tract infection secondary to Escherichia coli, extended- spectrum beta lactamase. Blood cultures done on 09/13 are negative. We will recommend to continue a ntibiotic for 2 weeks after September 13 to make it September 27. Continue supportive care and nutritio nal care. We will follow the patient closely. Thank you Dr. Roper for consult. NF/JAYL Voice ID: [id number] Report ID: [id number]
[2020-09-16] MEDS: ACETAMINOPHEN 500 MG TAB PO PRN ×2 (13:10→22:29)
[2020-09-16] MEDS: ALPRAZOLAM 0.25 MG TABLET PO PRN ×2 (21:47→23:20)
--- NOTE | 2020-09-16 23:44 | PN ---
Date of Progress Note: 09/16/2020 Subjective: The patient was admitted with acute kidney injury, severe hypernatremia. The patient was found to have UTI. Objective: Vital Signs: When I saw the patient, blood pressure of 91/59, pulse of 72, afebrile. The patient yesterday placed on D5 100, had urine output of 1300. The patient positive of 1900. Chest: Clear to auscultation. Heart: S1, S2. Systolic murmur. Abdomen: Soft, nontender. Extremities: Trace edema. Neuro: Patient is sleepy. No focality. Laboratory Data: H and H 8.3/26.2. Sodium 151, potassium 4.2, bicarb 27, BUN 52, creatinine 0.7, calcium 8.1, phosphorus 1.2. Iron saturation 8.5. Ferritin 235. Albumin 1.5. Current Medications: The patient on, 1. D5 with potassium at 100. 2. Tylenol. 3. Metoprolol. 4. Meropenem. 5. Alprazolam. 6. Folic acid. Assessment And Plan: 1. Acute kidney injury secondary to prerenal/toxic acute tubular necrosis, recovered, resolved. 2. Hypernatremia, continue to improve. I am going to continue D5. We will discontinue the potassium supplement. 3. Hypokalemia and hypophosphatemia. We will supplement. Discontinue potassium and IV fluid. 4. Iron-deficiency anemia. We will start the patient on IV iron. 5. Hyperchloremia secondary to alkalosis, poor intake. We will continue on D5. Chloride has been trended down. 6. Urinary tract infection, extended spectrum beta-lactamase. Follow up with ID. Time spent discussing with the patient, [id number], using the translation, discussing with the staff and placing an order, discussing with over subspecialty and hospitalist 45 minutes. TI Voice ID: [id number] Report ID: [id number] JUAN MIGUEL
[2020-09-17] MEDS: Meropenem 500 MG/100 ML BAG IV SCH ×3 (04:00→18:13)
[2020-09-17 04:18] LABS: Absolute Lymphocytes (CBC) 1.2 K/uL (0.7-4.9); Basophils % 0.1 % (0-1.3); Hematocrit 23.5 % (36.0-45.0); MPV 7.3 fL (7.6-11.3); RBC Red Blood Cell Count 2.44 M/uL (3.86-4.86)
[2020-09-17 04:31] LABS: Albumin 1.7 g/dL (3.4-5.0); Phosphorus 1.6 mg/dL (2.5-4.9); Potassium 4.2 mmol/L (3.5-5.1)
[2020-09-17] MEDS: METOPROLOL TAR 25 MG TAB PO SCH ×2 (05:02→18:14)
[2020-09-17] MEDS: D5W 1,000 ML IV SCH ×2 (07:00→17:00)
[2020-09-17] MEDS: JUVEN PACKET PO SCH ×2 (09:00→20:34)
[2020-09-17] MEDS: ENSURE ENLIVE 237 ML CAN PO SCH ×2 (09:00→20:34)
[2020-09-17] MEDS: SULFASALAZINE 500 MG E.C. TAB PO SCH ×2 (10:28→18:13)
[2020-09-17] MEDS: CRANBERRY FRUIT EXTRACT 200 MG CAP PO SCH (10:29)
[2020-09-17] MEDS: LACTOBACILLUS/ACIDOPHILUS TAB PO SCH ×2 (10:29→20:34)
[2020-09-17] MEDS: predniSONE 10 MG TAB PO SCH ×2 (10:30→20:34)
[2020-09-17] MEDS: THIAMINE HCL 100 MG TABLET PO SCH (10:30)
[2020-09-17] MEDS: FOLIC ACID 1 MG TABLET PO SCH (10:30)
[2020-09-17] MEDS ORDERED: SODIUM PHOSPHATE 30 MM in NA CHLORIDE 0.9% 500 ML IV ONE (11:00)
[2020-09-17] MEDS: ACETAMINOPHEN 500 MG TAB PO PRN (11:47)
[2020-09-17 12:36] LABS: Hematocrit 26.7 % (36.0-45.0)
--- NOTE | 2020-09-17 12:56 | P.DS ---
Admission Date: 09/09/20 Discharge Date: 09/17/20 Primary Care Provider: shelter Disposition: TRANSFER TO CUSTODIAL Discharge Condition: GOOD Reason for Admission: AMS Consultations: Nephrology-Dr. Jara Orthopedics-Dr. Leon Procedures: COVID 19: positive CT head: FINDINGS: No intracranial hemorrhage, hydrocephalus or extra-axial fluid collection.Advanced generalized brain atrophy is present with moderate periventricular and deep white matter chronic microvascular ischemic changes.No areas of brain edema or evidence of midline shift. The paranasal sinuses and mastoids are clear. The calvarium is intact. IMPRESSION: No acute intracranial abnormality. CT Scan: FINDINGS: Elevated right hemidiaphragm is seen with linear scarring in the right lung base.Lung bales are grossly clear.No pleural or pericardial effusion.No intrathoracic adenopathy. Several chronic right-sided ununited rib fractures. The liver, spleen, pancreas, adrenal glands are within normal limits. Punctate bilateral nephrolithiasis is present without hydronephrosis. 2 mm calculus is present in the left renal pelvis. No bowel obstruction, free air, free fluid or abscess. Severe fecal retention is present with rectum distended to 10 cm and sigmoid colon distended to 9 cm. No pathologic lymphadenopathy in the abdomen or pelvis. Ununited fracture of the proximal right femur involving the femoral head and neck seen. IMPRESSION: Severe fecal retention with marked colonic distention. Ununited fracture proximal right femur involving the femoral head and neck region. This is a new finding since February 2020. Punctate bilateral nephrolithiasis. Medical problem list: Toxic encephalopathy related to UTI with bacteremia, urine/blood culture positive for E coli-ESBL Chronic constipation Hypernatremia likely due to poor oral intake and acute renal failure COVID 19 positive Chronic Atrial fibrillation not on chronic anti coagulation therapy Anemia of chronic disease Moderate protein malnutrition Ununited fracture proximal right femur involving femoral head and neck Rheumatoid arthritis Brief History of Present Illness: 80-year-old female with multiple medical problems including dementia presented to the emergency room with altered mental status. Patient found to have UTI and severe dehydration. Patient was admitted for further evaluation. Hospital Course: Patient presented with Toxic encephalopathy related to UTI with bacteremia complicated with underlying dementia. Patient was admitted for further evaluation and treatment. Urine and blood culture was positive for E coli-ESBL. The patient was placed on meropenem. Patient has done well. Nephrology was also consulted to address her acute renal failure and hypernatremia. This has improved. Patient now back to baseline. PICC line was attempted but not successful. Surgery was consulted to place central line to continue IV antibiotic therapy. Central line in place. At discharge patient will continue with IV meropenem 500 mg 3 times a day for 7 more days. Recommend to recheck urine culture and blood culture at that time to monitor resolution. If negative medication can be discontinued. As mentioned above patient presented with hypernatremia and acute renal failure. Nephrology was consulted. Patient received IV fluids. This improved. Patient now back to baseline. Medications have been adjusted. Patient will no longer take Lasix or Aldactone. Recommend to recheck lab-BMP in 1 week to monitor her progress. Patient may follow up with nephrology to further monitor her care. Patient also found to have ununited fracture of the proximal right femur involving the femoral neck and head. Orthopedics was consulted. Fracture appeared chronic in nature. Due to her high risk factors surgical intervention was not recommended. Orthopedics discuss the case with family. They agreed with plan of non operative treatment. Patient may be mobilized with wheelchair as necessary but to remain nonweightbearing on the right lower extremity. Patient may continue with Tylenol as needed for pain. Patient with history of chronic constipation. This has improved. Patient is had multiple bowel meds with improvement. At discharge patient may continue with her current medications-lactobacillus 3 times a day. Patient may take Senokot if constipation restarts. Also consider Mineral oil as needed for constipation. shelter to monitor for constipation. Patient with chronic atrial fibrillation not on chronic anti coagulation therapy. Patient will continue with metoprolol for rate control. At discharge she will continue with metoprolol 12.5 mg 1 pill twice daily. Hold if blood pressure systolic less than 110 or heart rate less than 50. Parameters [address]. No need for chronic anti coagulation therapy. Patient with anemia of chronic disease and iron deficiency. This has remained stable. Recommend to continue iron supplementation daily. Recommend to recheck lab-CBC in 1-2 weeks to monitor her progress. Patient with positive COVID 19. Patient had no significant respiratory symptoms. Patient on room air. Patient was placed on IV steroids with improvement. Patient may continue with prednisone 10 mg 1 pill twice daily for 1 week then 1 pill once daily for 1 week. Patient will continue with COVID 19 guidelines an isolation. Patient with dementia. Patient previously on Seroquel and trazodone. Patient was also taking morphine ER. This was discontinued. Medications were discontinued due to increased sedation. Patient stable this time without medication. Will recommend to discontinue Seroquel, morphine and trazodone at discharge. Recommend follow up by neurology for further recommendation and monitoring. Patient with rheumatoid arthritis. She will continue with sulfasalazine. Will discontinue morphine. Consider Tramadol or gabapentin in the future as needed for pain. Advanced care planning address with the daughter. Daughter plans for hospice in the near future. This can be further addressed at the group home. Vital Signs/Physical Exam: Temp Pulse Resp BP Pulse Ox 97 F 100 H 16 112/57 L 94 09/17/20 12:00 09/17/20 12:00 09/17/20 12:00 09/17/20 12:00 09/17/20 12:00 General: Alert, Demented HEENT: Atraumatic Neck: Supple Respiratory: Clear to auscultation bilaterally, Other (Patient on room-air) Cardiovascular: Normal pulses, Regular rate/rhythm Gastrointestinal: Normal bowel sounds, No tenderness, No masses, No rebound, No guarding Neurological: Normal speech, Normal tone, Dementia Laboratory Data at Discharge: WBC 5.1 K/uL (4.3-10.9) D 09/17/20 03:48 Hgb 8.8 g/dL (12.0-15.0) L 09/17/20 12:10 Hct 26.7 % (36.0-45.0) L 09/17/20 12:10 Plt Count 380 K/uL (152-406) 09/17/20 03:48 PT 14.0 SECONDS (9.5-12.5) H 09/09/20 17:06 INR 1.19 09/09/20 17:06 APTT 25.1 SECONDS (24.3-36.9) 09/09/20 17:06 Sodium 151 mmol/L (136-145) H 09/17/20 03:48 Potassium 4.2 mmol/L (3.5-5.1) 09/17/20 03:48 BUN 60 mg/dL (7-18) H 09/17/20 03:48 Creatinine 0.69 mg/dL (0.55-1.3) 09/17/20 03:48 Glucose 108 mg/dL (74-106) H 09/17/20 03:48 Phosphorus 1.6 mg/dL (2.5-4.9) L 09/17/20 03:48 Magnesium 3.0 mg/dL (1.8-2.4) H 09/13/20 06:11 Total Bilirubin 0.4 mg/dL (0.2-1.0) 09/10/20 05:46 AST 22 U/L (15-37) 09/10/20 05:46 ALT 16 U/L (12-78) 09/10/20 05:46 Alkaline Phosphatase 73 U/L (45-117) 09/10/20 05:46 Amylase 14 U/L (25-115) L 09/09/20 17:06 Lipase 40 U/L (73-393) L 09/09/20 17:06 Home Medications: Ergocalciferol (Vitamin D2) [Vitamin D2] 1,250 units PO SEECOM 03/12/15 Folic Acid 1 mg PO DAILY 03/12/15 sulfaSALAzine [AZULFIDINE EN-tabs*] 500 mg PO BID 03/12/15 Acetaminophen [Tylenol] 325 mg PO DAILY 10/16/19 Cranberry Fruit [Cranberry] 400 mg PO DAILY 10/16/19 Sennosides/Docusate Sodium [Senna-S Laxative Tablet] 1 each PO DAILY 10/16/19 Ferrous Sulfate [Iron] 325 mg PO DAILY #30 tablet 09/17/20 Lactobacillus Acidophilus [Acidophilus Lactobacilli] 1 each PO TID #90 capsule 09/17/20 Metoprolol Tartrate [Lopressor*] 12.5 mg PO BID 6AM 6PM #60 tab 09/17/20 Thiamine HCl [Vitamin B-1*] 100 mg PO DAILY #30 tablet 09/17/20 predniSONE [Deltasone*] 10 mg PO SEECOM #21 tab 09/17/20 New Medications: Lactobacillus Acidophilus [Acidophilus Lactobacilli] 1 each PO TID #90 capsule predniSONE [Deltasone*] 10 mg PO SEECOM #21 tab Ferrous Sulfate [Iron] 325 mg PO DAILY #30 tablet Metoprolol Tartrate [Lopressor*] 12.5 mg PO BID 6AM 6PM #60 tab Thiamine HCl [Vitamin B-1*] 100 mg PO DAILY #30 tablet Patient Discharge Instructions: Patient return to group home to continue IV antibiotic therapy. Patient presented with Toxic encephalopathy related to UTI with bacteremia complicated with underlying dementia. Patient was admitted for further evaluation and treatment. Urine and blood culture was positive for E coli-ESBL. The patient was placed on meropenem. Patient has done well. Nephrology was also consulted to address her acute renal failure and hypernatremia. This has improved. Patient now back to baseline. PICC line was attempted but not successful. Surgery was consulted to place central line to continue IV antibiotic therapy. Central line in place. At discharge patient will continue with IV meropenem 500 mg 3 times a day for 7 more days. Recommend to recheck urine culture and blood culture at that time to monitor resolution. If negative medication can be discontinued. As mentioned above patient presented with hypernatremia and acute renal failure. Nephrology was consulted. Patient received IV fluids. This improved. Patient now back to baseline. Medications have been adjusted. Patient will no longer take Lasix or Aldactone. Recommend to recheck lab-BMP in 1 week to monitor her progress. Patient may follow up with nephrology to further monitor her care. Patient also found to have ununited fracture of the proximal right femur involving the femoral neck and head. Orthopedics was consulted. Fracture appeared chronic in nature. Due to her high risk factors surgical intervention was not recommended. Orthopedics discuss the case with family. They agreed with plan of non operative treatment. Patient may be mobilized with wheelchair as necessary but to remain nonweightbearing on the right lower extremity. Patient may continue with Tylenol as needed for pain. Patient with history of chronic constipation. This has improved. Patient is had multiple bowel meds with improvement. At discharge patient may continue with her current medications-lactobacillus 3 times a day. Patient may take Senokot if constipation restarts. Also consider Mineral oil as needed for constipation. shelter to monitor for constipation. Patient with chronic atrial fibrillation not on chronic anti coagulation therapy. Patient will continue with metoprolol for rate control. At discharge she will continue with metoprolol 12.5 mg 1 pill twice daily. Hold if blood pressure systolic less than 110 or heart rate less than 50. [address]. No need for chronic anti coagulation therapy. Patient with anemia of chronic disease and iron deficiency. This has remained stable. Recommend to continue iron supplementation daily. Recommend to recheck lab-CBC in 1-2 weeks to monitor her progress. Patient with positive COVID 19. Patient had no significant respiratory symptoms. Patient on room air. Patient was placed on IV steroids with improvement. Patient may continue with prednisone 10 mg 1 pill twice daily for 1 week then 1 pill once daily for 1 week. Patient will continue with COVID 19 guidelines an isolation. Patient with dementia. Patient previously on Seroquel and trazodone. Patient was also taking morphine ER. This was discontinued. Medications were discontinued due to increased sedation. Patient stable this time without medication. Will recommend to discontinue Seroquel, morphine and trazodone at discharge. Recommend follow up by neurology for further recommendation and monitoring. Patient with rheumatoid arthritis. She will continue with sulfasalazine. Will discontinue morphine. Consider Tramadol or gabapentin in the future as needed for pain. Advanced care planning address with the daughter. Daughter plans for hospice in the near future. This can be further addressed at the group home. Diet: pureed Activity: Bedrest Followup: Unknown,U [Primary Care Provider] - Time spent managing pt's care (in minutes): 55
[2020-09-17] MEDS ORDERED: LIDOCAINE 1% MPF 5 ML VIAL ONE (13:22)
[2020-09-17] MEDS ORDERED: HEPARIN 5000 UNIT/ML 1 ML VIAL ONE (13:23)
--- NOTE | 2020-09-17 13:42 | PN ---
Date of Progress Note: 09/17/2020 Subjective: The patient was admitted with acute kidney injury, COVID pneumonia, ESBL UTI. The patient had hypernatremia. The patient started on IV fluids. Sodium started improving. Objective: Vital Signs: Blood pressure 112/57, pulse of 100, afebrile. The patient had good urine output. Chest: Clear to auscultation. Heart: S1, S2. Systolic murmur. Abdomen: Soft, nontender. Extremities: No edema. Neuro: Alert, pleasantly confused. Laboratory Data: H and H 8.8/26.7. Sodium 151, potassium 4.2, bicarb 28, BUN 60, creatinine 0.6, calcium 8.2, phosphorus 1.6, iron saturation of 8.5, ferritin 235. Current Medications: The patient on includes: 1. Meropenem. 2. Sulfasalazine. 3. IV iron. 4. Metoprolol. 5. Alprazolam. 6. Folic acid. 7. Zofran. 8. D5. Assessment And Plan: 1. Acute kidney injury secondary to prerenal dehydration, recovered, resolved. 2. Hypernatremia. The patient does not have any access currently. After establishing access, we will continue D5. 3. Urinary tract infection extended spectrum beta-lactamase. Continue current antibiotic. 4. Hypophosphatemia. We will supplement again. 5. Iron-deficiency anemia. Continue IV iron. Time spent discussing with the patient, [id number], using the translation, discussing with the staff and placing an order, discussing with over subspecialty and hospitalist 45 minutes. TI Voice ID: [id number] Report ID: [id number] JUAN MIGUEL
--- NOTE | 2020-09-17 16:50 | P.OP ---
Preoperative diagnosis: Need for salvage determiner antibiotics Postoperative diagnosis: Need for salvage determiner antibiotics Primary procedure: Placement of LEFT subclavian central venous catheter Secondary procedure: microintroducer set used Anesthesia: 1% lidocaine Estimated blood loss: <10cc Specimen: none Findings: dark non pulsatile blood returned Complications: None Implants: central venous catheter Transferred to: Other Condition: Good
--- NOTE | 2020-09-17 17:58 | RAD REPORT ---
EXAM DESCRIPTION: Magdalena Single View09/17/2020 5:37 pm CLINICAL HISTORY: Device placement/central venous catheter placement IMPRESSION: Central venous catheter with its tip 3 centimeters into the right atrium. A pneumothorax is not present
--- NOTE | 2020-09-17 18:48 | CON ---
Date of Consultation: 09/17/2020 Reason For Consultation: Placement of a long-term central venous access. Brief History Of Present Illness: The patient is an 80-year-old female who presents to the hospital with urinary tract infection, bacteremia positive for E. coli, ESBL, COVID-19 positive as w aylin. Past Medical History: Anemia, moderate protein-calorie malnutrition, atrial fibrillation maintained on aspirin. The patient was demented at the time of my examination, conversive, but argumentative as such informa tion obtained from chart and not per patient. Past Medical History: As per HPI. Social History: Unable to obtain. Family History: Noncontributory. Medications: Meropenem. Allergies: LATEX. Review of Systems: Unable to obtain. Physical Examination: General: At the time of my examination, she is awake and alert but disoriented to place, time and ev ent, argumentative, combative and did not answer questions appropriately at time, but on occasion she would answer appropriately. HEENT: Otherwise normocephalic. Sclerae anicteric. Mucous membranes are moist. Oropharynx is tano r. Neck: Supple. No JVD. Chest: Normal expansion and excursion. Cardiovascular: Regular rate and rhythm. Diagnostic Studies: She had a lab exam, which revealed a white count of 5.1, hemoglobin is 8.8, martin tocrit 26.7. Her platelet count was 380. Her chemistry showed sodium 151, potassium is 4.2, chlorid e 120, carbon dioxide 28, BUN 60, creatinine was 0.6, glucose was 108, calcium 8.2, phosphorus 1.6. She was COVID-19 positive. She had positive bacteremic urine. She had a chest, abdomen, pelvis CT o n 09/09, which showed severe fecal retention with marked colonic distention. Ununited fracture proxi mal right femur involving the femoral head and neck region. This is new finding since February 2020, pun ctate bilateral nephrolithiasis. Assessment And Plan: This is an 80-year-old female who presents with ESBL bacteremia and need for lo ng-term antibiotics. 1.Continue medical management. 2.I will place a central venous catheter in the left subclavian position. I have explained the risk s, benefits, and alternatives including, but not limited to bleeding, infection, damage to surroundin g tissue, pneumothorax, need further operations and procedures. The patient and medical power of att orney agreed to proceed. JOHN/BRISA Voice ID: [id number] Report ID: [id number]
[2020-09-17] MEDS: ALPRAZOLAM 0.25 MG TABLET PO PRN (20:34)
--- NOTE | 2020-09-17 21:04 | OP ---
Date of Procedure: 09/17/2020 Surgeon: Derik Maravilla MD, Preoperative Diagnosis: Need for long-term antibiotics. Postoperative Diagnosis: Need for long-term antibiotics. Procedure Performed: 1.Placement of left subclavian central venous catheter. 2.Micro introducer set use. Anesthesia: 1% lidocaine without epinephrine. Estimated Blood Loss: 2 mL. Specimen: None. Findings: Dark red non-pulsatile blood return. Complications: None. Implants: Central venous catheter. Patient remained in room in good condition throughout the procedure. Procedure In Detail: After informed consent was obtained, patient was prepped and draped in the usua l sterile fashion after adequate anesthesia was achieved with 1% lidocaine in the area of the left gustafson bclavian. The patient was placed in steep Trendelenburg. Using a microintroducer set, needle was us ed to cannulate the left subclavian vein on first attempt. Dark red nonpulsatile blood was returned. The microwire was advanced at this point. Needle was removed. A small trevor [facility]. A micro introducer sheath was then used, taken out along with the micro wire. St andard wire was then advanced after dark red nonpulsatile blood was returned. At this point, the wir e was advanced and the introducer sheath removed. At this point, sequential dilatation was performed and the catheter was placed into the left subclavian position without evidence of complication. The standard wire was then removed at this point. All wires at this point were called and [facility] at [facility]. All ports were then withdrew. Dark red nonpulsatile blood and flushed quite easily w ith saline and were flushed with saline adequately. The area was then cleansed and a sterile dressin g was placed on top after placing 2-0 nylon suture and securing catheter to the chest wall. The anti biotic disk was placed and the patient was taken out of Trendelenburg position. The patient tolerate d the procedure well without evidence of complication. Remained in good condition throughout the pro cedure. All counts were correct at the end of the case. TK/MODL Voice ID: [id number] Report ID: [id number]
[2020-09-17 21:33] VITALS: O2SAT 94
[2020-09-18 00:37] VITALS: BP 97/58; TEMP 98.4
== END 2020-09-17 23:25 | DRG 689 ==
LOC: ER 16:19 → ERHOLD 21:14 → 4TH 09-10 09:51
PROVIDERS: ADMIT Family Medicine; ATTEND Family Medicine
PROC: 02H633Z Insertion of Infusion Device into Right Atrium, Percutaneous Approach (ICD-10-PCS; principal; 2020-09-17)
DX: N39.0 Urinary tract infection, site not specified (principal); U07.1 COVID-19; I21.A1 Myocardial infarction type 2; N17.0 Acute kidney failure with tubular necrosis; G92 Toxic encephalopathy; J12.82 Pneumonia due to coronavirus disease 2019; R78.81 Bacteremia; E87.0 Hyperosmolality and hypernatremia; Z16.12 Extended spectrum beta lactamase (ESBL) resistance; I48.20 Chronic atrial fibrillation, unspecified; E44.0 Moderate protein-calorie malnutrition; E87.3 Alkalosis; G30.9 Alzheimer's disease, unspecified; F02.80 Dementia in other diseases classified elsewhere, unspecified severity, without behavioral disturbance, psychotic disturbance, mood disturbance, and anxiety; M06.9 Rheumatoid arthritis, unspecified; E87.6 Hypokalemia; E78.5 Hyperlipidemia, unspecified; E83.39 Other disorders of phosphorus metabolism; E88.09 Other disorders of plasma-protein metabolism, not elsewhere classified; I12.9 Hypertensive chronic kidney disease with stage 1 through stage 4 chronic kidney disease, or unspecified chronic kidney disease; N18.9 Chronic kidney disease, unspecified; E86.0 Dehydration; D50.9 Iron deficiency anemia, unspecified; D63.8 Anemia in other chronic diseases classified elsewhere; E86.9 Volume depletion, unspecified; K59.04 Chronic idiopathic constipation; S72.001D Fracture of unspecified part of neck of right femur, subsequent encounter for closed fracture with routine healing; S72.051D Unspecified fracture of head of right femur, subsequent encounter for closed fracture with routine healing; T50.905A Adverse effect of unspecified drugs, medicaments and biological substances, initial encounter; B96.20 Unspecified Escherichia coli [E. coli] as the cause of diseases classified elsewhere; Z90.49 Acquired absence of other specified parts of digestive tract; Z68.21 Body mass index [BMI] 21.0-21.9, adult; Z79.899 Other long term (current) drug therapy; Z90.710 Acquired absence of both cervix and uterus; Z88.5 Allergy status to narcotic agent; Z91.040 Latex allergy status; Z91.048 Other nonmedicinal substance allergy status; Z66 Do not resuscitate; Z79.01 Long term (current) use of anticoagulants; Z79.52 Long term (current) use of systemic steroids
CPT/HCPCS: 36415; 36569; 51702; 70450; 71045; 71250; 73521; 74018; 74176; 80048; 80053; 80069; 80076; 81001; 81003; 81015; 82150; 82550; 82553; 82728; 83540; 83605; 83690; 83735; 84100; 84145; 84466; 84484; 85014; 85018; 85025; 85610; 85730; 86140; 87040; 87077; 87086; 87088; 87186; 87205; 93005; 94760; 96365; 99285; J0696; J1160; J1644; J2185; J2270; J2405; J2916; J2920; J3480; J7030; J7040; J7050; J7512; J7799; U0003